=== PATIENT | male | born 1960 | race Caucasian/White ===

== ENCOUNTER 2020-05-23 08:18 | Observation (INO) ==
[2020-05-10 12:49] LABS: Eosinophils # (auto) 0.22 K/uL (0-0.5); Eosinophils % (auto) 3.5 %; Hematocrit (blood only) 49.3 % (42-52); Hemoglobin 16.9 g/dL (14.0-18.0); Immature Granulocytes # (auto) 0.01 K/uL (0.00-0.02); Immature Granulocytes % (auto) 0.2 %; Lymphocytes # (auto) 1.35 K/uL (1.2-3.4); Lymphocytes % (auto) 21.4 %; Mean Corpuscular Hemoglobin 31.2 pg (25-34); Mean Corpuscular Hgb Conc 34.3 g/dL (32-36); Mean Platelet Volume 10.4 fL (7.4-10.4); Monocytes # (auto) 0.82 K/uL (0.11-0.59); Neutrophils # (auto) 3.91 K/uL (1.4-6.5); Neutrophils % (auto) 61.9 %; Platelet Count 222 K/uL (130-400); RDW Coefficient of Variation 13.2 % (11.5-14.5); RDW Standard Deviation 43.5 fL (36.4-46.3); Red Blood Count 5.42 M/uL (4.7-6.1); White Blood Count 6.31 K/uL (4.8-10.8)
[2020-05-10 12:56] LABS: Partial Thromboplastin Ratio 1.2; Partial Thromboplastin Time 32.3 Seconds (21.0-31.0); Prothrombin Time 10.2 Seconds (9.0-12.0)
[2020-05-10 14:31] LABS: Alanine Aminotransferase 35 U/L (12-78); Albumin Level 3.3 gm/dl (3.4-5.0); Aspartate Aminotransferase 16 U/L (15-37); BUN Creatinine Ratio 29.9 (10-20); Blood Urea Nitrogen 22 mg/dl (7-18); Calcium 8.5 mg/dl (8.5-10.1); Carbon Dioxide 26 mmol/L (21-32); Chloride 109 mmol/L (98-107); Est GFR (African American) 116.7; Est GFR (Non-African American) 100.7; Glucose 94 mg/dl (70-99); Potassium 4.2 mmol/L (3.5-5.1); Sodium 141 mmol/L (136-145)
[2020-05-10 14:34] LABS: Albumin Globulin Ratio 0.9 (0.9-2); Alkaline Phosphatase 98 U/L (45-117); Bilirubin,Total 0.6 mg/dl (0.2-1); C Reactive Protein < 0.29 mg/dl (0-0.29); Globulin 3.7 gm/dl (2.5-4.0)
--- NOTE | 2020-05-17 09:29 | Anesthesiology Consultation ---
Date of Service May 17, 2020 Assessment & Plan (1) Encounter for pre-operative examination: Per assessment on 04/17: Travel screen negative. No known COVID-19 positive contacts or current COVID-19 related symptoms. Surgeon arranging preop COVID testing. Awaiting results. Chart Review Chart Review: Acceptable Risk for Surgery and Patient NOT seen in Pre Admission Testing History Surgery Operation Date: 05/23/20 08:50 Proposed Procedures p Left Total Knee Arthroplasty - Marcelo Cote MD Height/Weight Height: 5 ft 9 in Weight: 127.459 kg Allergies Allergy/AdvReac Type Severity Reaction Status Date / Time No Known Allergies Allergy Unknown Verified 04/17/20 14:15 Medications Home Medications Medication Instructions Recorded Confirmed Last Taken amoxicillin 500 mg tablet 2,000 mg PO ONCE #4 tab 08/12/19 04/17/20 Unknown famotidine 20 mg tablet 20 mg PO UD PRN 09/23/19 04/17/20 Unknown ibuprofen [Advil] 600 mg PO UD PRN 11/22/19 04/17/20 Unknown acetaminophen [Tylenol] 975 mg PO QID PRN 03/24/20 04/17/20 04/05/20 08:00 Past Medical History Medical History Acid reflux Ehsmheh-Crvmq-Tfhsp disease follows Dr. Shaffer ([facility]) annually Degenerative disc disease DJD (degenerative joint disease) Morbid obesity Osteoarthritis Snores Past Family History Family History Mother Diabetes Past Surgical History Surgical History Family history of reaction to anesthesia DAUGHTER, SLOW TO WAKE UP History of colonoscopy History of tooth extraction History of total right hip replacement Social History Smoking Status: Former smoker tobacco type: cigarettes Smoking cigarettes per day: 4 CIGS PER DAY Do You Dip or Chew Tobacco: No Smoking End Date: 1 YR AGO Hx Alcohol Use: Yes Alcohol type: hard liquor alcohol intake frequency: a few times a week Hx Substance Use: No substance use type: does not use Testing Laboratory Results 05/10/20 WBC 6.31 H/H 16.9/49.3 PLATELETS 222 SODIUM 141 POTASSIUM 4.2 CHLORIDE 109 CO2 26 BUN 22 CREATININE 0.72 GLUCOSE 94 PT 10.2 PTT 32.3 INR 1.0 T&S O+Ab- Electrocardiogram Date: 01/11/20 Findings: + NSR @ (84) and + no change from (2007) LAD. Low voltage QRS. Chest X-Ray Date: 01/11/20 Findings: + NAD There is mild elevation/eventration left hemidiaphragm
--- NOTE | 2020-05-20 11:26 | History and Physical Report ---
DATE OF ADMISSION: 05/23/2020 CHIEF COMPLAINT: Bilateral knee pain and discomfort, left side a bit worse than the right. HISTORY OF PRESENT ILLNESS: The patient is a 59-year-old gentleman who has been a fairly long-term patient of the practice, who presents again for treatment of his knees. He has got a long history of bilateral knee pain and discomfort that has gradually gotten worse over time. We had actually scheduled him for left knee replacement, but this was canceled due to the COVID epidemic. Since then, he developed some back pain and had to undergo some treatment for that. That has now cleared up and doing better. He continues to be bothered by bilateral knee pain and discomfort. The left side is worse than the right. He has been through extensive conservative treatment provided by my partner, Dr. Howe over the years. He has had multiple aspirations and injections, which have become less successful over time. He has got chronic pain. Increased pain going up and down steps. He would like to proceed with left knee replacement. He is open to do the right one in about 3 months. PAST MEDICAL HISTORY: 1. Gastroesophageal reflux disease. 2. Obesity with BMI of 42. 3. Back pain, sciatica. PAST SURGICAL HISTORY: Include right total hip replacement done by myself in 2007. ALLERGIES: None. CURRENT MEDICATIONS: Include: 1. Advil. 2. Pepcid. SOCIAL HISTORY: This is a 59-year-old male. He is fairly active. Quit smoking a year ago. Occasional alcohol intake. FAMILY HISTORY: Noncontributory. REVIEW OF HISTORY: Negative for diabetes, neurologic problem, vascular problems or bleeding disorders. No history of DVT or PE. No known bleeding problems. PHYSICAL EXAMINATION GENERAL: Shows a pleasant, middle-aged male, looks to be in good health. HEENT: Benign. NECK: Supple, no lymphadenopathy. LUNGS: Clear to auscultation. HEART: Has regular rate and rhythm. ABDOMEN: Soft, nontender, nondistended. EXTREMITIES: Grossly neurovascularly intact except as follows. Examination of both knees reveals the patient ambulates with use of a cane. Examination of the left knee reveals fairly neutral slight varus alignment. He has got a small knee effusion. Range of motion is 5-10 degrees short of full extension to 120 degrees of flexion. He has patellofemoral crepitance. No pain with hip motion. Examination of the right knee reveals fairly neutral alignment. Small knee effusion. Range of motion 5-125. No instability. He does have crepitance with knee motion. X-RAYS: X-rays of both knee reveals some moderate tibial, femoral and advanced patellofemoral arthritis. The left side is a bit worse than the right. ASSESSMENT: A 59-year-old gentleman with history of right hip replacement in the past along with gastroesophageal reflux disease, obesity, and chronic back pain with advanced bilateral patellofemoral arthritis. He has got less severe tibiofemoral arthritis. He has failed conservative treatment. He continues to have recurrent effusions that has become less responsive to conservative treatment. He would like to proceed with knee replacement. He is hoping to do his left knee and then the right knee about 3 months later. PLAN: We will proceed with left knee replacement. The risks and benefits of this procedure were explained to the patient including but not limited to DVT, PE, , infection, neurological injury, vascular injury, bleeding problem, pain, limited range of motion, stiffness, failure to relieve symptoms, incomplete relief of symptoms, need for blood transfusion, need for revision surgery. I made him fully aware that knee replacement for patellofemoral arthritis is less predictable than tibiofemoral arthritis and he is aware of it. Does not feel like he has got any other options. We are going to proceed with a knee replacement. As far as discharge plans, he is planning to be discharged to home using [facility] home health program.
[~2020-05-23 08:18] MED LIST: ACETAMINOPHEN 500 MG TAB PO SCH; BUPIVACAINE 0.5 % 5 MG/1 ML PF 10ML VIAL ONE; BUPIVACAINE LIPOSOME/PF 266 MG, BUPIVACAINE/EPINEPHRINE 50 ML, SODIUM CHLORIDE 0.9% 30 ... INFIL SCH; BUPIVACAINE/EPINEPHRINE 0.25% 1:200,000 30 ML VIAL ONE; DEXAMETHASONE SOD INJ 4 MG/ML VIAL ONE; FAMOTIDINE 20 MG TAB PO SCH; GABAPENTIN 600 MG DOSE PO SCH; LR 500ML BOLUS, THEN 15ML/HR IV SCH; LR 60ML/HR IV SCH; METOCLOPRAMIDE HCL 10 MG TABLET PO SCH; TRANEXAMIC ACID / 0.7% NACL 1,000 MG/100 ML BAG IV SCH; ceFAZolin 2000MG 2,000 MG/15 ML SYR IV SCH
--- NOTE | 2020-05-23 08:41 | History & Physical Bridge Note ---
Date of Service May 23, 2020 History & Physical Bridge Note I have examined the patient, reviewed the History & Physical and in the interval since the performance of the History & Physical I have noted the following changes of clinical significance: no changes noted
[2020-05-23] MEDS ORDERED: MIDAZOLAM HCL 1 MG/ML 2ML VIAL ONE ×2 (09:17→09:18)
[2020-05-23] MEDS ORDERED: fentaNYL citrate 100 MCG/2 ML VIAL ONE (09:18)
[2020-05-23] MEDS ORDERED: TRANEXAMIC ACID / 0.7% NACL 1000MG/100ML BAG IV ONE (09:26)
[2020-05-23] MEDS ORDERED: BUPIVACAINE/EPINEPHRINE 0.25% 1:200,000 30 ML VIAL ONE (10:11)
[2020-05-23] MEDS ORDERED: BUPIVACAINE LIPOSOME 1.3% 266 MG/20 ML VIAL ONE (10:12)
[2020-05-23] MEDS ORDERED: SODIUM CHLORIDE 0.9% PF 50 ML VIAL ONE (10:12)
[2020-05-23] MEDS ORDERED: BACITRACIN INJ 50,000 UNIT VIAL ONE (10:12)
[2020-05-23] MEDS ORDERED: LIDOCAINE HCL 2% 2 ML VIAL/AMP(20MG/ML) INFIL ONE (10:15)
[2020-05-23] MEDS ORDERED: PROPOFOL IV EMULSION 10 MG/ML 20 ML VIAL IV ONE (10:16)
[2020-05-23] MEDS ORDERED: ONDANSETRON INJ 2 MG/ML 2 ML VIAL ONE (10:49)
[2020-05-23] MEDS ORDERED: PHENYLEPHRINE 100MCG/ML 5ML SYR ONE (11:39)
[2020-05-23] MEDS ORDERED: ePHEDrine sulfate 50 MG/ML AMP IV PRN (12:02)
[2020-05-23] MEDS ORDERED: ATROPINE SULFATE 0.1 MG/ML 10ML SYR IV PRN (12:02)
[2020-05-23] MEDS ORDERED: fentaNYL citrate 100 MCG/2 ML VIAL IV PRN (12:02)
[2020-05-23] MEDS ORDERED: ONDANSETRON INJ 2 MG/ML 2 ML VIAL IV PRN ×2 (12:02→14:22)
--- NOTE | 2020-05-23 12:21 | Post Operative Brief Note ---
PG Immediate Post Op with CF Date of Surgery May 23, 2020 Pre & Post Diagnosis Operation Date: 05/23/20 10:50 Pre-Op Diagnosis: Left Knee Advanced Degenerative Joint Disease Post-Op Diagnosis: Left Knee Advanced Degenerative Joint Disease I identified the patient and participated in the time-out.: Yes Procedure Operation Date: 05/23/20 10:50 Actual Procedures p Left Total Knee Arthroplasty(Left) - Marcelo Cote MD Surgeon Marcelo Cote MD Branch Store Manager Massimo, PAC Estimated Blood Loss 50 Findings Consistent with Post-Op Diagnosis Fluids 1200 cc Specimens Specimen Description: A. Left Knee Bone and Tissue Drains Singh Catheter Anesthesia Type Spinal MAC Complications none Disposition Accompanied Patient To Recovery: No Disposition: Recovery Room
--- NOTE | 2020-05-23 12:51 | XRay Report ---
LEFT KNEE 2 VIEWS History: Left total knee arthroplasty. Degenerative arthritis. Postop. FINDINGS: The patient is status post a left total knee arthroplasty. The hardware is intact. No fract ure or dislocation. Skin beatriz are in place. IMPRESSION: Left total knee arthroplasty. No evidence for hardware complication. ACT 112: Negative or not required by law. Electronically signed by: Stanislav Rocha M.D. 05/23/2020 12:50 PM
--- NOTE | 2020-05-23 13:22 | Anesthesiology Progress Note ---
Date of Service May 23, 2020 Anesthesia Post Procedure Vital Signs Vital Signs: Temp Pulse Pulse Resp BP Pulse Ox 05/23/20 13:05 85 12 121/61 94 05/23/20 12:55 36.4 C L 84 16 131/62 92 05/23/20 12:45 88 15 138/70 93 05/23/20 12:35 89 15 138/65 92 05/23/20 12:27 36.2 C L 93 H 15 103/53 L 96 05/23/20 09:33 76 20 125/66 96 05/23/20 08:43 36.6 C 82 20 147/90 H 95 Transfer of Care Handoff Completed per policy Notes Mental Status: alert / awake / arousable Patient Amnestic to Procedure: Yes Nausea / Vomiting: adequately controlled Pain: adequately controlled Airway Patency, RR, SpO2: stable & adequate BP & HR: stable & adequate Hydration State: stable & adequate Anesthetic Complications: no major complications apparent
[2020-05-23] MEDS ORDERED: bisacodyL 10 MG SUPP PR PRN (14:22)
[2020-05-23] MEDS ORDERED: MAGNESIUM HYDROXIDE SUSP 30 ML UDC PO PRN (14:22)
[2020-05-23] MEDS ORDERED: METOCLOPRAMIDE HCL INJ 5 MG/ML 2 ML VIAL IV PRN (14:22)
[2020-05-23] MEDS ORDERED: NALOXONE HCL 0.4 MG/1 ML VIAL/CARP IV PRN (14:22)
[2020-05-23] MEDS ORDERED: diphenhydrAMINE Capsule 25 MG CAP PO PRN (14:22)
[2020-05-23] MEDS ORDERED: FAMOTIDINE 20 MG TAB PO PRN (14:22)
[2020-05-23] MEDS ORDERED: HYDROmorphone INJ 0.5 MG/0.5 ML SYR IV PRN (14:22)
[2020-05-23] MEDS ORDERED: ALUMINUM/MAGNESIUM SUSP 30 ML UDC PO PRN (14:22)
[2020-05-23] MEDS ORDERED: TAMSULOSIN HCL 0.4 MG CAP PO PRN (14:22)
[2020-05-23] MEDS: KETOROLAC 30 MG/ML VIAL IV SCH ×2 (15:42→21:32)
[2020-05-23] MEDS: ACETAMINOPHEN 500 MG TAB PO SCH (15:43)
[2020-05-23] MEDS: Scopolamine CHECK PATCH PLACEMENT SCH (15:44)
[2020-05-23] MEDS: SODIUM CHLORIDE 0.9% 1000ML 1,000 ML IV SCH ×2 (15:44→21:32)
--- NOTE | 2020-05-23 16:46 | Operative Report ---
Post Operative Report Pre & Post Diagnosis Operation Date: 05/23/20 10:50 Pre-Op Diagnosis: Left Knee Advanced Degenerative Joint Disease Post-Op Diagnosis: Left Knee Advanced Degenerative Joint Disease I identified the patient and participated in the time-out.: Yes Procedure Operation Date: 05/23/20 10:50 Actual Procedures p Left Total Knee Arthroplasty(Left) - Marcelo Cote MD Surgeon Marcelo Cote MD Diet Aide Massimo, PAC Estimated Blood Loss 50 Findings Consistent with Post-Op Diagnosis Operative findings revealed advanced left knee DJD most extensive in the patellofemoral compartment with extensive grade 4 [id number] disease of the trochlea and patella. He had eburnation on both services and quite a bit of wear of the patella surface itself. He had some spotty grade 4 changes laterally. Fairly mild disease medially. Fairly large knee joint effusion. Fluids 1200 cc. Specimens Left knee sent for pathology. Drains None. Anesthesia Type Spinal MAC Complications none Disposition Accompanied Patient To Recovery: No Disposition: Recovery Room Indications Patient is a 59-year-old gentleman is had several year history of bilateral knee pain discomfort and recurrent just knee swelling and effusions. He was treated by my partner for quite some time. This became less successful over time. He had mostly patellofemoral arthritis but some tibiofemoral arthritis. Patient elected proceed with total knee arthroplasties. The recurrent knee effusions were quite bothersome. Description of Procedure Operative implants consist of: 1. Biomet Vanguard size 67.5 left posterior by femoral component. 2. Biomet size 75 tibial tray. 3. 10 mm posterior box polyethylene insert. 4. 28 x 8 all poly-patella. The patient was taken to the operating room identified and placed on the operating room table in a supine position protectors were properly padded. IV antibiotics arrived by anesthesia team. A spinal anesthetic and abductor canal block had provided in the holding area. Singh catheter was placed in sterile fashion. A left thigh turn was then placed in the left lower extremity was then prepped and draped in usual sterile fashion. The left leg was elevated exsanguinated with use of an Esmarch interspace at 3 mmHg. An anterior approach left knee was then performed to longitudinal incision centered over the patella. Sharp dissection was got through subcutaneous tissue down to the extensor mechanism. A medial parapatellar arthrotomy incision was made. Some subperiosteal dissection was carried out medially. The fat pad was dissected from each patella tendon. Lateral patellofemoral ligament was released. Patella was subluxated laterally and the knee was flexed. The osteophytes were taken off distal femur. The ACL and PCL were then released from distal femur the tibia subluxate anteriorly. The external tibial alignment jig was then placed in the interface the tibia and adjusted 14 mm medially. Proximal tibial cut was made to move about 3 to 4 mm of bone from the medial side. He did not have much bony wear on the tibia. The tibia sized to a size 75. Attention drawn the femur. The distal femur then with a sharp drop with intramedullary canal was suction. A left 5 degree valgus cutting guide was placed but distal to the distal femoral cutting block was pinned in place. Distal femoral cut was made to take an additional 3 mm of bone off distal femur. The femur was then sized to a size 67.5. The AP cutting block was pinned parallel to the epicondylar axis which was 6 degrees of external rotation. The anterior cut, anterior chamfer, posterior cut, posterior chamfer cuts were made. Box cutting guide was placed in just slight lateral box cut was made. The knee was flexed. The remnants of the medial lateral menisci were excised. The osteophytes were taken off the posterior aspect of the femur. A trial femoral component was placed. The tibial tray was pinned in maximum external rotation and the drill and stem punch were used to create defect in proximal to for the tibial tray. The knee was then trialed and 10 mm insert fit most appropriate. Attention then drawn the patella. The patella was cleaned of all soft tissues. Some large osteophytes were removed from around the patella. The patella was quite worn with a thickness of 18. Was cut down to 12. Even this there was some the lateral facet which was still low below the level of the cut. I did downsize the patella in order to try to maximize patella tracking. We downsized this to a 28. The lug holes were drilled for the 28 patella. The lateral osteophyte is moved. Patella button was placed. Knee was taken through range of motion patella tracked nicely with no thumbs test. Attention drawn to placing permanent components. All trial components were removed. A bone plug was placed in the distal femur limit blood loss. A double batch Palacos G cement was mixed. A Biomet Vanguard size 67.5 left posterior stabilized femoral component, size 75 tibial tray, 10 mm Po stabilized polyethylene insert, and a 28 x 8 all poly-patella then cemented in place. The knee was brought out into full extension total cement hardened. Final cement check was then performed. The pericapsular tissues were injected with total of 100 cc of combination of 20 of Exparel, 30 cc normal saline, 50 cc of quarter percent Marcaine with epinephrine. Patient did receive 1 g tranexamic acid per the tech was then let down for final tourniquet time of 63 minutes. Hemostasis assured use electrocautery. The extensor mechanism then closed with a combination #1 PDS suture #1 Vicryl suture in [id number] fashion. Extensor mechanism checked found to be intact the subcutaneous tissue then closed with 2 Dexon suture in a buried interrupted fashion skin was closed skin beatriz. Leg was then cleaned dried a sterile dressing composed Xeroform, 4 x 4's, sterile cast padding, Sanya bandage were applied. Patient then transferred to the recovery room in stable condition. Patient tolerated proc edure well and there were no complications. Maude Keys, my physician field technical assistant, was present for the entire procedure. His assistance was required for appropriate patient positioning, prepping and draping, surgical exposure, performing the technical details of the operation, placement the implants, closure of the wound, and placement of a sterile bandage. I attest to the content of the Intraoperative Record and any orders documented therein. Any exceptions are noted below.
[2020-05-23] MEDS: oxyCODONE HCL IR 5 MG TAB (IMMEDIATE RELEASE) PO PRN ×2 (17:06→22:15)
[2020-05-23] MEDS: ASCORBIC ACID 500 MG TAB PO SCH (17:08)
[2020-05-23] MEDS ORDERED: TRANEXAMIC ACID / 0.7% NACL 1,000 MG/100 ML BAG IV SCH (18:30)
[2020-05-23] MEDS: ceFAZolin 2000MG 2,000 MG/15 ML SYR IV SCH (18:57)
[2020-05-23] MEDS: ASPIRIN 81 MG ECTAB PO SCH (20:31)
[2020-05-23] MEDS: DOCUSATE SODIUM 100 MG CAP PO SCH (20:31)
[2020-05-23] MEDS: TAPENTADOL HCL ER 50 MG TABCR PO SCH (20:33)
[2020-05-23] MEDS ORDERED: SENNA 8.6 MG TAB PO SCH (21:00)
[2020-05-24] MEDS: ACETAMINOPHEN 500 MG TAB PO SCH ×2 (00:43→08:45)
[2020-05-24] MEDS: Scopolamine CHECK PATCH PLACEMENT SCH ×2 (00:44→08:46)
[2020-05-24] MEDS: ceFAZolin 2000MG 2,000 MG/15 ML SYR IV SCH (02:50)
[2020-05-24] MEDS: KETOROLAC 30 MG/ML VIAL IV SCH ×2 (04:17→10:10)
[2020-05-24] MEDS: SODIUM CHLORIDE 0.9% 1000ML 1,000 ML IV SCH (04:54)
[2020-05-24] MEDS: oxyCODONE HCL IR 5 MG TAB (IMMEDIATE RELEASE) PO PRN ×2 (05:58→12:02)
[2020-05-24 06:09] LABS: Mean Corpuscular Hemoglobin 30.7 pg (25-34); Mean Corpuscular Hgb Conc 33.3 g/dL (32-36); Mean Platelet Volume 9.9 fL (7.4-10.4); Platelet Count 214 K/uL (130-400); RDW Coefficient of Variation 13.1 % (11.5-14.5); RDW Standard Deviation 43.9 fL (36.4-46.3); Red Blood Count 4.24 M/uL (4.7-6.1); White Blood Count 10.46 K/uL (4.8-10.8)
[2020-05-24 06:44] LABS: BUN Creatinine Ratio 29.4 (10-20); Calcium 7.6 mg/dl (8.5-10.1); Creatinine Clr Calc Pharmacy 139.3 ml/min; Est GFR (Non-African American) 100.1; Potassium 4.2 mmol/L (3.5-5.1)
[2020-05-24] MEDS: DOCUSATE SODIUM 100 MG CAP PO SCH (08:45)
[2020-05-24] MEDS: ASPIRIN 81 MG ECTAB PO SCH (08:45)
[2020-05-24] MEDS: ASCORBIC ACID 500 MG TAB PO SCH (08:46)
[2020-05-24] MEDS: TAPENTADOL HCL ER 50 MG TABCR PO SCH (08:48)
[2020-05-24] MEDS ORDERED: MULTIVITAMIN TAB PO SCH (09:00)
--- NOTE | 2020-05-24 09:17 | Progress Notes ---
DATE: 05/24/2020 SUBJECTIVE: A 59-year-old gentleman postop day 1 from a left knee replacement. He is doing pretty well. Pain has been controlled. Had a reasonable night. No chest pain or shortness of breath. Not feeling dizzy or lightheaded. OBJECTIVE: VITAL SIGNS: Temperature 36.4. Vital signs stable. GENERAL: Physical examination shows a pleasant, middle-aged male. He is standing up, walking around his room this morning when I visited with him. He looks comfortable. LUNGS: Clear to auscultation. HEART: Has a regular rate and rhythm. ABDOMEN: Soft, nontender, nondistended. EXTREMITIES: Grossly neurovascularly intact except as follows. Examination of the left lower extremity reveals the dressing to be clean, dry and intact. Leg alignment looks good. He can dorsiflex and plantarflex his foot appropriately. He is neurologically intact. LABORATORY DATA: Hemoglobin is 13.0. Hematocrit 39.0. Electrolytes are stable. ASSESSMENT: A 59-year-old gentleman postop day 1 from a left knee replacement, doing pretty well. Pain is controlled. He is neurologically intact. PLAN: 1. DVT prophylaxis include thigh-high TEDs, SCDs and aspirin twice a day. 2. PT/OT, weight bear as tolerated. Left total knee protocol. 3. Pain control, doing pretty well with current pain regimen. 4. Disposition: He is planning to be discharged to home with some home health once adequately recovered and medically stable.
--- NOTE | 2020-05-30 06:36 | Discharge Summary ---
Date of Service May 30, 2020 Admission HPI Per Admitting Provider Documented in the H & P Admission Exam (Per Admitting) Constitutional Documented in the H & P Discharge Data Consultations 05/23/20 14:22 Consult Case Management - Discharge Planning Routine Procedures Performed Operation Date: 05/23/20 10:50 Actual Procedures p Left Total Knee Arthroplasty(Left) - Marcelo Cote MD Hospital Course (1) Status post total left knee replacement: This patient is a 59 year old male admitted on 05/23/20 and underwent total knee arthroplasty. He tolerated the procedure well and there were no complications. Transferred to the PACU post op and later to the orthopedic floor for further care. He was given ancef for antibiotic prophylaxis. He was also given ALEXIS stockings, SCDs, and aspirin for DVT prophylaxis. Hemoglobin, hematocrit, and vital signs were monitored during his hospital stay and remained stable. Did not require any blood transfusions. There were no complications during his hospital stay. By post op day #1 the patient was tolerating a regular diet, pain was reasonably controlled with oral pain medicine, and he was participating in physical therapy. On post op day #1 the patient was discharged home and set up with home health care. He was given printed discharge instructions including prescriptions for extra strength tylenol, aspirin, and oxycodone. Continue physical therapy, weight bearing as tolerated. Continue ALEXIS stockings. Follow up approximately 2 weeks post op or sooner if there are problems or concerns. Coding Level of Care Code None Diagnoses Status post total left knee replacement Z96.652
== END 2020-05-24 13:42 | disposition home health service (06) ==
LOC: 3E 08:18 → ASU 08:18

== ENCOUNTER 2021-11-27 05:08 | Observation (INO) ==
--- NOTE | 2021-10-18 09:57 | PAT Medication Instructions ---
Medication Instructions Date of Service October 18, 2021 Home Medications Medication Instructions Recorded amoxicillin 500 mg tablet 2,000 mg PO ONCE #4 tab 12/04/20 famotidine 20 mg tablet (Pepcid) 20 mg PO UD PRN ibuprofen 200 mg tablet (Advil) 600 mg PO UD PRN acetaminophen 325 mg tablet (Tylenol) 975 mg PO QID PRN amoxicillin 500 mg tablet 2,000 mg PO ONCE Continue as directed amoxicillin 500 mg tablet 2,000 mg PO ONCE ASK your surgeon for instructions ibuprofen 200 mg tablet (Advil) 600 mg PO UD PRN Take morning of surgery With a small sip of water, OTHERWISE NOTHING TO EAT OR DRINK AFTER MIDNIGHT: famotidine 20 mg tablet (Pepcid) 20 mg PO UD PRN(if needed) acetaminophen 325 mg tablet (Tylenol) 975 mg PO QID PRN(okay to take up to 4 hours prior to surgery if needed) Take evening before surgery acetaminophen 325 mg tablet (Tylenol) 975 mg PO QID PRN(if needed) Other Notes If you have any questions please call us at [phone] or [phone] or [phone] or [phone]
--- NOTE | 2021-10-19 13:20 | Anesthesiology Consultation ---
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 Case discussed with Dr. Magallanes who advised patient is NOT an acceptable ca ndidate for [facility] from anesthesia perspective given co- morbidities. Surgeon's office made aware. - COVID screening: Per assessment on 10/19/2021: Travel screen negative, no known COVID-19 positive contacts or current COVID-19 related symptoms in past 2 weeks. Patient vaccinated. Surgeon arranging preop COVID testing, scheduled 11/23/2021. Awaiting results. Chart Review Chart Review: Acceptable Risk for Surgery and Patient seen in Pre Admission Testing Teaching & Discussion Pre-Anesthesia Teaching/Discussion Notes: Instructed NPO after midnight before surgery, except medications with 15 cc of water. Medication instructions provided according to the PAT guidelines. History Surgery Operation Date: 11/27/21 11:05 Proposed Procedures p OP: Left Total Hip Replacement - Marcelo Cote MD Height/Weight Height: 5 ft 8 in Weight: 119.9 kg Allergies Allergy/AdvReac Type Severity Reaction Status Date / Time No Known Allergies Allergy Unknown Verified 10/18/21 08:01 Medications Home Medications Medication Instructions Recorded Confirmed Last Taken famotidine 20 mg tablet (Pepcid) 20 mg PO UD PRN 09/23/19 10/18/21 02/19/21 06:00 ibuprofen 200 mg tablet (Advil) 600 mg PO UD PRN 11/22/19 10/18/21 02/15/21 acetaminophen 325 mg tablet 975 mg PO QID PRN 03/24/20 10/18/21 02/19/21 06:00 (Tylenol) amoxicillin 500 mg tablet 2,000 mg PO ONCE #4 tab 12/04/20 10/18/21 Unknown Past Medical History Medical History (Updated 10/19/21 @ 13:52 by Myra Lima PA-C) Acid reflux controlled, stable per pt Xlskkax-Orinw-Answl disease follows Dr. Shaffer ([facility]) annually-longstanding bilateral mild foot drops worse on the left and numbness, ambulates with cane (TKA and back surgery in past year) Degenerative disc disease DJD (degenerative joint disease) History of anesthesia reaction LOW BP POST OP WITH BACK SURGERY 05/2021 History of claustrophobia with MRIs Lumbar spinal stenosis Morbid obesity with BMI of 40.0-44.9, adult Osteoarthritis Sciatica Snores NO SLEEP STUDY Patient denies h/o stroke, seizures, heart attack, heart failure, DM, HTN, blood clots or blood transfusions. Exercise / Class Metabolic Activity II 4-5 Yardwork/Stairs/Walk up hill (denies CP or SOB with 1 FOS) Past Family History Family History Mother Diabetes Daughter Family history of reaction to anesthesia slow to wake Past Surgical History Surgical History (Updated 10/19/21 @ 13:53 by Myra Lima PA-C) History of colonoscopy History of lumbar surgery 05/2021 [facility] [place]: hypotension, successfully treated with additional IV fluids per pt History of tooth extraction History of total left knee replacement 05/23/2020: SAB at L3-L4 1 attempt + PNB. No issues postop per anesthesia note. History of total right hip replacement Status post epidural steroid injection multiple--last 11/16/20 Past Anesthesia History No Hx of Anesthesia Complications and Other (daughter-slow to wake, denies needing re-intubated) History of PONV No Hx of PONV and No Hx of Motion Sickness Social History Smoking Status: Former smoker tobacco type: cigarettes Smoking cigarettes per day: 4 CIGS PER DAY Do You Dip or Chew Tobacco: No Smoking End Date: QUIT 2 YRS AGO Hx Alcohol Use: Yes Alcohol type: hard liquor alcohol intake frequency: a few times a week Hx Substance Use: No substance use type: does not use Review of Systems Patient denies chest pain, shortness of breath, dyspnea on exertion, witnessed apneas, fever, chills, cough, wheezing, or palpitations. Physical Exam Vital Signs Vitals BP 117/80 P 69 TEMP 97.8 SP02 96% on RA RESP 17 Physical Full cervical extension range of motion without pain Full TMJ range of motion TMD 3 finger breaths Mallampati Score 2 Dentition: upper partial 5 teeth, one crown left upper side and one crown back upper pt unsure of side; denies chipped or loose teeth Lungs: normal respiratory effort. Clear throughout to auscultation, no adventitious breath sounds Cardiac: regular rate and rhythm, no murmurs noted Carotid arteries: negative bruit bilat Extremities: trace pitting edema (nontender, nonerythematous) chronic per pt change or worsening Lab Results Anesthesia Preop Results Results Anesthesia Widget: WBC 6.34 K/uL (4.8-10.8) 10/19/21 Hgb 16.9 g/dL (14.0-18.0) 10/19/21 Hct 50.1 % (42-52) 10/19/21 Plt 220 K/uL (130-400) 10/19/21 Na 138 mmol/L (136-145) 10/19/21 K 4.8 mmol/L (3.5-5.1) 10/19/21 Cl 103 mmol/L (98-107) 10/19/21 CO2 29 mmol/L (21-32) 10/19/21 BUN 22 mg/dl (6-23) 10/19/21 Creat 0.64 mg/dl (0.6-1.4) 10/19/21 Glucose Level 96 mg/dl (70-99(Fasting)) 10/19/21 PT 10.0 Seconds (9.0-12.0) 10/19/21 PTT 31.9 Seconds (21.0-31.0) H 10/19/21 INR 1.0 (0.9-1.1) 10/19/21 Blood Type O Positive 10/19/21 Antibody Screen NEGATIVE 10/19/21 Testing Electrocardiogram Date: 10/19/21 NSR, rate 70 bpm Left axis deviation Incomplete RBBB Chest X-Ray Date: 10/19/21 No acute chest disease
--- NOTE | 2021-11-24 11:26 | History and Physical Report ---
DATE OF ADMISSION: 11/27/2021. CHIEF COMPLAINT: Left hip pain, discomfort and stiffness. HISTORY OF PRESENT ILLNESS: The patient is a 61-year-old gentleman well known to me from previous ri ght hip replacement done in 2007 and the left knee replacement done about a year and a half ago. He has done well from these surgeries. He has also developed a lot of hip and leg problems on his left side. He did have back surgery at [place] about a year ago and recovered from this. He continues to be bothered by hip, groin, and thigh pain on that side. He has lost about 40 pounds, but continues to be limited by the pain. It is disabling pain. He has a limited walking tolerance. X-rays have shown hip arthritis, and he is here to have his hip fixed. PAST MEDICAL HISTORY: Significant for: 1. A 40-pound weight loss. 2. Sgrvzbj-Yikjj-Pgjot disease. 3. Back pain and back arthritis. 4. Gastroesophageal reflux disease. 5. Mild obesity with BMI of 40. PAST SURGICAL HISTORY: Includes: 1. Right hip replacement done 10/31/2007. 2. Left knee replacement done on 05/20/2020. 3. Back surgery done by Dr. Garcia in [place] on 05/30/2021. ALLERGIES: None. CURRENT MEDICATIONS: 1. Pepcid. 2. Advil. SOCIAL HISTORY: A 61-year-old male. He is . Does not smoke. No significant alcohol intake. FAMILY HISTORY: Noncontributory. REVIEW OF SYSTEMS: Negative for diabetes. Denies any chest pain or shortness of breath. No history of DVT or PE. No known bleeding problems. He does have underlying Jznfkhz-Mikvk-Kfgci disease. PHYSICAL EXAMINATION: GENERAL: Shows a pleasant middle-aged male. Looks to be in reasonably good health. HEENT: Benign. NECK: Supple. No lymphadenopathy. LUNGS: Clear to auscultation. HEART: Regular rate and rhythm. ABDOMEN: Soft, nontender, nondistended. EXTREMITIES: Grossly neurovascularly intact except as follows. Examination of the left hip revealed patient walks with use of a cane. He limps on the left side. H e is about 0.5 cm short on the left side compared to right. He has pain with any type of hip motion. Negative straight leg raise. He is neurologically intact. Examination of the left knee reveals a well-healed incision. Minimal swelling. Range of motion is 0 -120. X-RAYS: X-rays of the left hip were reviewed. It shows advanced left hip DJD. He had a dysplastic appearance to his hip with a high valgus angle. He has got flattening of the femoral head. He had c omplete loss of joint space. ASSESSMENT: A 61-year-old male with underlying Ghaoqcz-Finxt-Cilzv disease, status post right hip re placement done in 2007 and a left knee replacement a year and a half ago with advanced left hip DJD. He did have a pretty recent back surgery done at [place] and has recovered from this. He has become persistently disabled by his hip pain, would like to have his hip fixed. PLAN: We are going to take him to the operating room and do left total hip replacement. The risks a nd benefits of this procedure were explained to the patient include but not limited to DVT, PE, , infection, neurological injury, vascular injury, bleeding problem, pain, limited range of motion, s tiffness, failure to relieve his symptoms, incomplete relief of symptoms, fracture, leg length inequa lity, nerve palsy, dislocation, etc. The patient understands and desires to proceed. Informed conse nt was obtained. We talked about implants. He has got a vpuzw-fs-anlti hip implant on the other side. We did not do that anymore and we will use a ceramic on polyethylene surface. We will plan on using a Corail stem, but if he has got too much dysplasia, we will be prepared to use the S-ROM if needed. He is alejo enamorado to be discharged to home using [facility] home health program. Will see him back 2 weeks postop. Job ID: [id number]
[2021-11-27] MEDS: ACETAMINOPHEN 500 MG TAB PO SCH ×4 (05:47→20:33)
[2021-11-27] MEDS ORDERED: Scopolamine 1 MG TDSY TD SCH (06:00)
[2021-11-27] MEDS ORDERED: TRANEXAMIC ACID 1,000 MG **IV Pre-op IV SCH (06:00)
[2021-11-27] MEDS ORDERED: LR 500ML BOLUS, THEN 15ML/HR IV SCH (06:00)
[2021-11-27] MEDS ORDERED: FAMOTIDINE 20 MG TAB PO SCH (06:00)
[2021-11-27] MEDS ORDERED: BUPIVACAINE LIPOSOME/PF 266 MG, BUPIVACAINE/EPINEPHRINE 50 ML, SODIUM CHLORIDE 0.9% 30 ... INFIL SCH (06:00)
[2021-11-27] MEDS ORDERED: LR 60ML/HR IV SCH (06:00)
[2021-11-27] MEDS ORDERED: ceFAZolin 2000MG 2,000 MG/15 ML SYR IV SCH (06:00)
[2021-11-27] MEDS ORDERED: METOCLOPRAMIDE HCL 10 MG TABLET PO SCH (06:00)
[2021-11-27] MEDS ORDERED: GABAPENTIN 600 MG DOSE PO SCH (06:00)
[2021-11-27] MEDS ORDERED: BUPIVACAINE 0.5 % 5 MG/1 ML PF 10ML VIAL ONE (06:28)
[2021-11-27] MEDS ORDERED: EPINEPHrine INJ 1 MG/ML AMP ONE (06:36)
[2021-11-27] MEDS ORDERED: BUPIVACAINE 0.5 % 5 MG/1 ML MPF 30ML VIAL ONE (06:37)
[2021-11-27] MEDS ORDERED: MIDAZOLAM HCL 1 MG/ML 2ML VIAL ONE (06:40)
[2021-11-27] MEDS ORDERED: fentaNYL citrate 100 MCG/2 ML VIAL ONE (06:44)
--- NOTE | 2021-11-27 06:53 | History & Physical Bridge Note ---
Date of Service November 27, 2021 History & Physical Bridge Note I have examined the patient, reviewed the History & Physical and in the interval since the performance of the History & Physical I have noted the following changes of clinical significance: no changes noted
[2021-11-27] MEDS ORDERED: PHENYLEPHRINE 100MCG/ML 5ML SYR IV PRN (07:05)
[2021-11-27] MEDS ORDERED: LABETALOL HCL IV 5 MG/ML 20ML IV PRN (07:05)
[2021-11-27] MEDS ORDERED: ATROPINE SULFATE 0.1 MG/ML 10ML SYR IV PRN (07:05)
[2021-11-27] MEDS ORDERED: ePHEDrine sulfate 50 MG/ML AMP IV PRN (07:05)
[2021-11-27] MEDS ORDERED: ONDANSETRON INJ 2 MG/ML 2 ML VIAL IV PRN ×2 (07:05→10:40)
[2021-11-27] MEDS ORDERED: fentaNYL citrate 100 MCG/2 ML VIAL IV PRN (07:05)
[2021-11-27] MEDS ORDERED: HYDROmorphone INJ 1 MG/ML SYRINGE IV PRN (07:05)
[2021-11-27] MEDS ORDERED: KETAMINE 50 MG/5 ML SYRINGE ONE (07:16)
[2021-11-27] MEDS ORDERED: PHENYLEPHRINE 100MCG/ML 5ML SYR ONE (07:33)
[2021-11-27] MEDS ORDERED: PROPOFOL IV EMULSION 10 MG/ML 20 ML VIAL IV ONE ×2 (07:33→09:33)
[2021-11-27] MEDS ORDERED: ONDANSETRON INJ 2 MG/ML 2 ML VIAL ONE (07:33)
[2021-11-27] MEDS ORDERED: LIDOCAINE 2% 2 ML VIAL/AMP(20MG/ML) INFIL ONE (07:33)
[2021-11-27] MEDS ORDERED: ePHEDrine sulfate 50 MG/ML SYR ONE (07:33)
--- NOTE | 2021-11-27 08:56 | Operative Report ---
PG Post Operative Report Pre & Post Diagnosis Operation Date: 11/27/21 07:00 Pre-Op Diagnosis: Left Hip Advanced Degenerative Joint Disease Post-Op Diagnosis: Left Hip Advanced Degenerative Joint Disease I identified the patient and participated in the time-out.: Yes Procedure Operation Date: 11/27/21 07:00 Actual Procedures p Left Total Hip Arthroplasty--Uncemented(Left) - Marcelo Cote MD Surgeon Marcelo Cote MD Supervisor Cigar Processing Haresh Keys PA-C Estimated Blood Loss 200 Findings Consistent with Post-Op Diagnosis Operative findings were advanced left hip DJD. Extensive grade 4 ylau-hu-txcl disease with a dysplastic acetabulum. Large osteophytes. He had a valgus angle to his femoral neck with a dysplastic appearance with increased anteversion. Moderate-sized joint effusion. Fluids 1000 cc Specimens Left femoral head sent for pathology Anesthesia Type Spinal MAC Complications none Disposition Accompanied Patient To Recovery: Yes Indications Patient is a 61-year-old gentleman with a long history of orthopedic problems and multiple joint replacements. He is got underlying Ktfczee-Yxhrs-Jetwu disease. Over the past a year or so he has developed increased pain discomfort in his left hip. He recently had back surgery at [place] which helped some of his back problem but continued to be debilitated by his hip pain. X-rays show advanced hip arthritis. He elected proceed with surgical management. Description of Procedure Operative implants consist of: 1. Biomet G7 size 56 mm acetabular shell. 2. 6.5 cancellous acetabular screws 135 mm length and 1 of 30 mm length. 3. Zaleski hole rcp. 4. Highly cross-linked polyethylene liner with a 56 mm outer diameter, 36 mm inner diameter with a maza placed inferior and posterior. 5. DePuy Corail size 11 standard angle femoral stem. 6. +5/36 mm ceramic articular ball. The patient was taken to the operating, identified, placed on the operating table supine position protectors were properly padded. IV antibiotics tried by anesthesia team. Spinal anesthetic had been implemented holding area. A Singh catheter was placed in sterile fashion. Patient then placed in the right lateral decubitus position. Axillary roll was placed. A Stulberg hip positioner was used for positioning. Left hip and leg were then prepped and draped in usual sterile fashion. Posterior lateral posterior left hip was then performed to a curvilinear incision centered over the greater trochanter. Sharp dissection carried through subcutaneous tissue down below the IT band gluteal fascia the IT band gluteal fascia was incised longitudinally in line with skin incision. The underlying greater bursa was excised. The piriformis and external rotators along with the posterior hip joint capsule were then released from the posterior aspect hip as a single layer. Great care was taken throughout the procedure protect the sciatic nerve at all times. The hip was internally rotated and dislocated. Femoral neck osteotomy cut was made with Final Cut 20 mm above the lesser trochanter. Femoral head was removed and sent for pathology. The femur was re tracted anteriorly. Attention drawn the acetabulum. The acetabulum labrum was excised. There was really not much residual posterior joint capsule remaining. The pulmonary fat was excised. Sequential reaming the acetabular was then performed begin with size 45 and progressing up to 55. I did reamed a little bit with a 56 reamer and then placed a 56 mm cup in about 40 degrees lateral opening and 20 degrees of anteversion. It was fixed with two 6.5 cancellous acetabular screws. A large anterior osteophyte was removed. Trial liner was placed. Attention drawn the femur. The proximal femur was entered with a cookie-cutter followed by canal finder. I then broached begin the size 8 progressing up to 11. Got excellent fit at 11. Then trialed the hip and the +5 articular ball provide full stability in full extension and external rotation and flexion to 90 degrees internal rotation over [address] a maza inferior and posterior to maximize his stability in flexion as he did not have much residual posterior capsule remaining. Leg lengths seemed equal. We elect to place these implants. All trial implants were removed. An apex hole rcp was placed but highly c ross-linked polyethylene liner was placed with a maza placed inferior and posterior. A DePuy size 11 KLA standard 135 degree angle neck was then impacted in position. +5/36 mm ceramic articular ball was placed. Hip was located and found to be stable. Attention drawn toward closing. Wound was irrigated scopes also pulsatile lavage solution. I did inject locally with 60 cc of half percent Marcaine with epinephrine. Posterior capsule and external rotators were then repaired through drill holes as a single layer with #2 Tycron suture. The IT band gluteal fascia then closed in 1 PDS suture running fashion for subcutaneous tissue then closed in 2 layers with a deep layer #1 Vicryl suture and subcutaneous tissue with 2 Dexon suture in a buried interrupted fashion. Skin was closed skin beatriz. Leg was then cleaned and dried and sterile dressing was Xeroform, 4 x 4's, sterile ABD pad, foam tape was applied. The patient then transferred to the recovery room in stable condition. Patient tolerated procedure well and there are no complications. Haresh Keys, my physician lead assistant manager, was present for the entire procedure. His assistance was essential and required for appropriate patient positioning, prepping and draping, surgical exposure, performing the technical details of the operation, placement the implants, closure of the wound, and placement of the sterile bandage. I attest to the content of the Intraoperative Record and any orders documented therein. Any exceptions are noted below.
--- NOTE | 2021-11-27 09:35 | XRay Report ---
SINGLE VIEW PELVIS; SINGLE VIEW LEFT HIP CLINICAL HISTORY: Postoperative examination. FINDINGS: An AP portable view of the hips and pelvis with a crosstable lateral portable view of the l eft hip are obtained. A bipolar left hip arthroplasty is in near-anatomic alignment. There are likely 3 cortical lag screws transfixing the acetabular cup. No acute fracture is identified. There are exp ected postoperative changes overlying the left hip including skin clips, subcutaneous gas, and soft t issue swelling. A right hip arthroplasty is also in place. Lumbosacral spondylosis is partially visua lized IMPRESSION: Expected postoperative findings status post left hip arthroplasty. No acute fracture is s een. ACT 112: Negative or not required by law. Electronically signed by: Mason Burleson M.D. 11/27/2021 9:34 AM
--- NOTE | 2021-11-27 09:41 | Anesthesiology Progress Note ---
Date of Service November 27, 2021 Anesthesia Post Procedure Vital Signs Vital Signs: Temp Pulse Pulse Resp BP Pulse Ox 11/27/21 09:35 75 22 114/66 97 11/27/21 09:25 78 17 106/46 L 98 11/27/21 09:15 73 17 97/59 L 98 11/27/21 09:05 74 17 115/58 L 97 11/27/21 08:55 75 18 108/61 97 11/27/21 08:46 36.3 C L 72 16 99/58 L 96 11/27/21 05:58 36.9 C 84 18 136/70 97 Transfer of Care Handoff Completed per policy Notes Mental Status: alert / awake / arousable Patient Amnestic to Procedure: Yes Nausea / Vomiting: adequately controlled Pain: adequately controlled Airway Patency, RR, SpO2: stable & adequate BP & HR: stable & adequate Hydration State: stable & adequate Neuraxial Anesthesia: was administered and sensory block is resolving Anesthetic Complications: no major complications apparent and Pt Satisfied with anesthetic care
[2021-11-27] MEDS ORDERED: ALUMINUM/MAGNESIUM SUSP 30 ML UDC PO PRN (10:40)
[2021-11-27] MEDS ORDERED: FAMOTIDINE 20 MG TAB PO PRN (10:40)
[2021-11-27] MEDS ORDERED: HYDROmorphone INJ 0.5 MG/0.5 ML SYR IV PRN (10:40)
[2021-11-27] MEDS ORDERED: NALOXONE HCL 0.4 MG/1 ML VIAL/CARP IV PRN (10:40)
[2021-11-27] MEDS ORDERED: METOCLOPRAMIDE HCL INJ 5 MG/ML 2 ML VIAL IV PRN (10:40)
[2021-11-27] MEDS ORDERED: MAGNESIUM HYDROXIDE SUSP 30 ML UDC PO PRN (10:40)
[2021-11-27] MEDS ORDERED: bisacodyL 10 MG SUPP PR PRN (10:40)
[2021-11-27] MEDS ORDERED: diphenhydrAMINE Capsule 25 MG CAP PO PRN (10:40)
[2021-11-27] MEDS: oxyCODONE HCL IR 5 MG TAB (IMMEDIATE RELEASE) PO PRN ×3 (11:14→22:55)
[2021-11-27] MEDS ORDERED: ONDANSETRON 4 MG OD TAB PO PRN (11:18)
[2021-11-27] MEDS: KETOROLAC 30 MG/ML VIAL IV SCH ×3 (11:42→22:55)
[2021-11-27] MEDS: DOCUSATE SODIUM/SENNA 50/8.6MG TAB PO SCH (11:42)
[2021-11-27] MEDS: TAMSULOSIN HCL 0.4 MG CAP PO SCH (11:43)
[2021-11-27] MEDS: ASPIRIN 81 MG ECTAB PO SCH ×2 (12:25→20:32)
[2021-11-27] MEDS: MULTIVITAMIN TAB PO SCH (12:25)
[2021-11-27] MEDS: DOCUSATE SODIUM 100 MG CAP PO SCH ×2 (12:25→20:33)
--- NOTE | 2021-11-27 14:08 | Progress Notes ---
DATE OF SERVICE: 11/27/2021. SUBJECTIVE: A 61-year-old gentleman postop from a left hip replacement. He is doing pretty well. H is pain was starting to increase and he took some oxycodone and is very comfortable. No chest pain o r shortness of breath. Not feeling dizzy or lightheaded. OBJECTIVE: VITAL SIGNS: Temperature 36.4. Vital signs are stable. PHYSICAL EXAMINATION: GENERAL: Shows a pleasant middle-aged male. He is sitting up in bed and looks pretty comfortable th is afternoon. LUNGS: Clear to auscultation. HEART: Has a regular rate and rhythm. ABDOMEN: Soft, nontender, nondistended. EXTREMITIES: Neurovascularly intact except as follows: Examination of the left lower extremity reve als the leg to be well aligned. Dressing is clean, dry and intact. His thigh is soft and supple. H e can slightly dorsiflex and plantarflex his foot. It is still on the weak side. He does have some baseline weakness, particularly with dorsiflexion and eversion due to his Arzhspl-Lqmco-Gmirs. He fe els like he is pretty much back to baseline. He has got brisk refill. X-RAYS: X-rays of the left hip from recovery room are reviewed. It shows left uncemented total hip arthroplasty. Components looked to be in excellent position. No signs of problems. ASSESSMENT: A 61-year-old gentleman with underlying Mpqavml-Ictgo-Efmmg disease, now postoperative f rom a left uncemented total hip replacement. He is doing well. Pain is controlled. His hip is loca dino. Neurovascularly, he appears to be close to baseline. He does have weakness in his foot from hi s Fncnhjk-Pnsom-Qjses disease. PLAN: 1. DVT prophylaxis includes thigh-high TEDs, SCDs, and aspirin twice a day. 2. PT/OT. He can weight bear as tolerated on the left leg, needs to obey hip precautions. 3. Pain control, doing okay with current pain regimen. 4. Disposition: Plan to discharge to home with some home health tomorrow after therapy, if he does okay. Job ID: [id number]
[2021-11-27] MEDS: ceFAZolin 2000MG 2,000 MG/15 ML SYR IV SCH ×2 (14:17→22:55)
[2021-11-27] MEDS: Scopolamine CHECK PATCH PLACEMENT SCH ×2 (14:18→23:39)
[2021-11-27] MEDS: SODIUM CHLORIDE 0.9% 1000ML 1,000 ML IV SCH ×2 (14:35→20:50)
[2021-11-27] MEDS ORDERED: TRANEXAMIC ACID / 0.7% NACL 1,000 MG/100 ML BAG IV SCH (15:00)
[2021-11-27] MEDS: ASCORBIC ACID 500 MG TAB PO SCH (17:11)
[2021-11-27] MEDS ORDERED: SENNA 8.6 MG TAB PO SCH (21:00)
[2021-11-28] MEDS: KETOROLAC 30 MG/ML VIAL IV SCH (05:42)
[2021-11-28] MEDS: oxyCODONE HCL IR 5 MG TAB (IMMEDIATE RELEASE) PO PRN ×2 (05:44→11:40)
[2021-11-28] MEDS: ACETAMINOPHEN 500 MG TAB PO SCH (05:54)
[2021-11-28 06:52] LABS: Eosinophils # (auto) 0.05 K/uL (0-0.5); Eosinophils % (auto) 0.7 %; Hematocrit (blood only) 45.7 % (42-52); Hemoglobin 15.5 g/dL (14.0-18.0); Immature Granulocytes # (auto) 0.01 K/uL (0.00-0.02); Immature Granulocytes % (auto) 0.1 %; Lymphocytes # (auto) 0.64 K/uL (1.2-3.4); Lymphocytes % (auto) 9.4 %; Mean Corpuscular Hemoglobin 31.4 pg (25-34); Mean Corpuscular Hgb Conc 33.9 g/dL (32-36); Mean Corpuscular Volume 92.5 fL (80-100); Mean Platelet Volume 9.7 fL (7.4-10.4); Monocytes # (auto) 0.74 K/uL (0.11-0.59); Monocytes % (auto) 10.9 %; Neutrophils # (auto) 5.34 K/uL (1.4-6.5); Neutrophils % (auto) 78.9 %; Platelet Count 182 K/uL (130-400); RDW Coefficient of Variation 13.5 % (11.5-14.5); RDW Standard Deviation 45.7 fL (36.4-46.3); Red Blood Count 4.94 M/uL (4.7-6.1); White Blood Count 6.78 K/uL (4.8-10.8)
[2021-11-28 07:16] LABS: BUN Creatinine Ratio 21.3 (10-20); Calcium 8.6 mg/dl (8.5-10.1); Creatinine Clr Calc Pharmacy 126.3 ml/min; Est GFR (African American) 113.2 ml/min; Est GFR (Non-African American) 97.6 ml/min; Potassium 4.2 mmol/L (3.5-5.1)
[2021-11-28 07:39] VITALS: PULSE 76; TEMP 98.6; O2SAT 93
[2021-11-28] MEDS ORDERED: dexAMETHasone 10 MG in SYRINGE 0 ML IV SCH (08:00)
[2021-11-28] MEDS: ASPIRIN 81 MG ECTAB PO SCH (08:35)
[2021-11-28] MEDS: ASCORBIC ACID 500 MG TAB PO SCH (08:35)
[2021-11-28] MEDS: MULTIVITAMIN TAB PO SCH (08:35)
[2021-11-28] MEDS: DOCUSATE SODIUM 100 MG CAP PO SCH (08:35)
[2021-11-28] MEDS: DOCUSATE SODIUM/SENNA 50/8.6MG TAB PO SCH (08:35)
[2021-11-28] MEDS: Scopolamine CHECK PATCH PLACEMENT SCH (08:36)
[2021-11-28] MEDS: TAMSULOSIN HCL 0.4 MG CAP PO SCH (08:36)
[2021-11-28 10:49] VITALS: BP 106/69
--- NOTE | 2021-11-28 11:08 | Progress Notes ---
DATE OF SERVICE: 11/28/2021. SUBJECTIVE: A 61-year-old gentleman postoperative day 1 from a left total hip replacement. He is do ing quite well. He had a pretty good night. Some moderate pain, but taking care with pain medicine. No chest pain or shortness of breath. Not feeling dizzy or lightheaded. He is hoping to go home. OBJECTIVE: VITAL SIGNS: Temperature 37.0. Vital signs are stable. GENERAL: Shows a pleasant middle-aged male. He is sitting up in his bedside, looks pretty comfortab le. LUNGS: Clear to auscultation. HEART: Has a regular rate and rhythm. ABDOMEN: Soft, nontender, nondistended. EXTREMITIES: Grossly neurovascularly intact except as follows. Examination of the left hip and leg reveals the dressing to be clean, dry and intact. His thigh is s oft and supple. Fairly minimal swelling. No active drainage. He can dorsiflex and plantarflex his foot appropriately. Still a little bit weak on this side, but looks to be back to baseline. ASSESSMENT: A 61-year-old gentleman with underlying Gfqvmow-Jtxzo-Oeppz disease, postoperative day 1 from left hip replacement. He is doing pretty well. Pain seems to be controlled. Neurologically h e seems to be back to baseline. PLAN: 1. DVT prophylaxis includes thigh-high TEDs, SCDs, and aspirin twice a day. 2. PT, OT, weightbear as tolerated. Left total hip protocol. 3. Pain control, doing okay with current pain regimen. 4. Disposition: Plan to discharge to home with some home health later today if he does okay in ther apy. Job ID: [id number]
== END 2021-11-28 11:50 | disposition home health service (06) ==
LOC: ASU 05:08 → 3E 05:08

== ENCOUNTER 2022-01-21 10:35 | Inpatient (IN) ==
--- NOTE | 2022-01-18 12:32 | Anesthesiology Consultation ---
Date of Service January 18, 2022 Assessment & Plan (1) Encounter for pre-operative examination: - COVID screening: Per assessment on 01/18: No known COVID-19 positive contacts or current COVID-19 related symptoms. Travel screen negative. Patient vaccinated. Preop Covid test done 01/18 ([place]) is pending. Pt requiring admission post-operatively. Plan for recheck with COVID Hand AM DOS due to possibility that patient may have a roommate. OR aware. Hand order placed. - S/P Left EDIN (11/27/21): SAB at L3/4 (x1 attempt) at [facility]. No issues noted per post-op anesthesia progress note. - Patient had preop labs done 01/18 ([place])- results are still pending (CBC, CMP). Labs done 11/2021 were unremarkable. Will need to review results AM DOS. Patient acceptable risk for surgery pending review of preop labs AM DOS. Chart Review Chart Review: Patient NOT seen in Pre Admission Testing History Surgery Operation Date: 01/21/22 12:30 Proposed Procedures p Left Hip Incision and Drainage with Poly Exchange - Marcelo Cote MD Height/Weight Height: 5 ft 8 in Weight: 111.584 kg Allergies Allergy/AdvReac Type Severity Reaction Status Date / Time No Known Allergies Allergy Unknown Verified 11/27/21 05:35 Medications Home Medications Medication Instructions Recorded Confirmed Last Taken famotidine 20 mg tablet (Pepcid) 20 mg PO UD PRN 09/23/19 01/18/22 11/26/21 08:00 amoxicillin 500 mg tablet 2,000 mg PO ONCE #4 tab 11/12/21 01/18/22 Unknown ondansetron HCl 4 mg tablet 4 mg PO Q6H PRN #25 tab 11/25/21 01/18/22 Unknown acetaminophen 500 mg tablet See Rx Instructions .ROUTE 12/20/21 01/18/22 Unknown .COMPLEX #90 cap cephalexin 500 mg capsule 500 mg PO Q6 #40 cap 01/01/22 01/18/22 Unknown sulfamethoxazole 800 1 tab PO BID #60 tab 01/04/22 01/18/22 Unknown mg-trimethoprim 160 mg tablet (Bactrim DS) Past Medical History Medical History Acid reflux 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[facility]) annually-longstanding bilateral mild foot drops worse on the left and numbness, ambulates with cane (TKA and back surgery in past year) Degenerative disc disease DJD (degenerative joint disease) History of claustrophobia with MRIs Lumbar spinal stenosis Morbid obesity with BMI of 40.0-44.9, adult Osteoarthritis Prosthetic hip infection Sciatica Snores No sleep study Past Family History Family History Mother Diabetes Daughter Family history of reaction to anesthesia slow to wake Past Surgical History Surgical History History of anesthesia reaction Low BP post-op back surgery (05/2021) History of colonoscopy History of lumbar surgery [place] [facility] [place], successfully treated with additional IV fluids per pt History of tooth extraction History of total left hip arthroplasty (~11/27/21) @ [facility] Dr. Cote History of total left knee replacement 05/23/2020: SAB at L3-L4 1 attempt + PNB. No issues postop per anesthesia note. History of total right hip replacement (~10/30/07) Left EDIN (11/27/21): SAB at L3/4 (x1 attempt) at [facility] Status post epidural steroid injection multiple--last 11/16/20 Social History Smoking Status: Never smoker tobacco type: cigarettes Smoking cigarettes per day: 4 CIGS PER DAY Hx Alcohol Use: Yes Alcohol type: hard liquor alcohol intake frequency: a few times a week Hx Substance Use: No substance use type: does not use Lab Results Anesthesia Preop Results Results Anesthesia Widget: WBC 6.78 K/uL (4.8-10.8) 11/28/21 Hgb 15.5 g/dL (14.0-18.0) 11/28/21 Hct 45.7 % (42-52) 11/28/21 Plt 182 K/uL (130-400) 11/28/21 Na 135 mmol/L (136-145) L 11/28/21 K 4.2 mmol/L (3.5-5.1) 11/28/21 Cl 101 mmol/L (98-107) 11/28/21 CO2 27 mmol/L (21-32) 11/28/21 BUN 16 mg/dl (6-23) 11/28/21 Creat 0.75 mg/dl (0.6-1.4) 11/28/21 Glucose Level 110 mg/dl (70-99(Fasting)) H 11/28/21 Testing Electrocardiogram Date: 10/19/21 NSR, rate 70 bpm Left axis deviation Incomplete RBBB Chest X-Ray Date: 10/19/21 No acute chest disease
[~2022-01-21 10:35] MED LIST changes: -BUPIVACAINE 0.5 % 5 MG/1 ML PF 10ML VIAL ONE; -BUPIVACAINE/EPINEPHRINE 0.25% 1:200,000 30 ML VIAL ONE; +DAKIN'S SOLN 0.5% FULL STRENGTH 473ML BTL EXT ONE; -DEXAMETHASONE SOD INJ 4 MG/ML VIAL ONE; +Scopolamine 1 MG TDSY TD SCH; -TRANEXAMIC ACID / 0.7% NACL 1,000 MG/100 ML BAG IV SCH; +TRANEXAMIC ACID 1,000 MG **IV Pre-op IV SCH; -ceFAZolin 2000MG 2,000 MG/15 ML SYR IV SCH
[2022-01-21] MEDS ORDERED: MIDAZOLAM HCL 1 MG/ML 2ML VIAL ONE (12:27)
[2022-01-21] MEDS ORDERED: fentaNYL citrate 100 MCG/2 ML VIAL ONE (12:30)
[2022-01-21] MEDS ORDERED: LIDOCAINE 2% 2 ML VIAL/AMP(20MG/ML) INFIL ONE (12:31)
[2022-01-21] MEDS ORDERED: ROCURONIUM BROMIDE 10 MG/ML 5 ML VIAL IV ONE (12:34)
[2022-01-21] MEDS ORDERED: ePHEDrine sulfate 50 MG/ML AMP IV PRN (12:47)
[2022-01-21] MEDS ORDERED: ATROPINE SULFATE 0.1 MG/ML 10ML SYR IV PRN (12:47)
[2022-01-21] MEDS ORDERED: ONDANSETRON INJ 2 MG/ML 2 ML VIAL IV PRN ×2 (12:47→17:55)
[2022-01-21] MEDS ORDERED: HYDROmorphone INJ 2 MG/ML SYR/VIAL IV PRN (12:47)
[2022-01-21] MEDS ORDERED: EPINEPHrine INJ 1 MG/ML AMP ONE (12:58)
[2022-01-21] MEDS ORDERED: BUPIVACAINE 0.5 % 5 MG/1 ML MPF 30ML VIAL ONE (12:58)
--- NOTE | 2022-01-21 13:21 | History & Physical Bridge Note ---
Date of Service January 21, 2022 History & Physical Bridge Note I have examined the patient, reviewed the History & Physical and in the interval since the performance of the History & Physical I have noted the following changes of clinical significance: no changes noted
[2022-01-21] MEDS ORDERED: VANCOMYCIN HCL 1000MG/20ML VIAL ONE ×2 (13:28→13:57)
[2022-01-21] MEDS ORDERED: DEXAMETHASONE SOD INJ 4 MG/ML VIAL ONE (14:12)
[2022-01-21] MEDS ORDERED: HYDROmorphone INJ 2 MG/ML SYR/VIAL ONE (14:23)
[2022-01-21] MEDS ORDERED: ONDANSETRON INJ 2 MG/ML 2 ML VIAL ONE (14:23)
[2022-01-21] MEDS ORDERED: GLYCOPYRROLATE 0.2 MG/ML VIAL ONE (14:25)
[2022-01-21] MEDS ORDERED: NEOSTIGMINE METHYLSULFATE 1 MG/ML 10ML VIAL ONE (14:25)
--- NOTE | 2022-01-21 16:25 | Post Operative Brief Note ---
PG Immediate Post Op with CF Date of Surgery January 21, 2022 Pre & Post Diagnosis Operation Date: 01/21/22 12:30 Pre-Op Diagnosis: Infected Total Hip Replacement Post-Op Diagnosis: Infected Total Hip Replacement I identified the patient and participated in the time-out.: Yes Procedure Operation Date: 01/21/22 12:30 Actual Procedures p Left Hip Incision and Drainage with femoral head and Polyethelene Exchange(Left) - Marcelo Cote MD Surgeon Marcelo Cote MD Lead Cashier Haresh Keys PA-C Estimated Blood Loss 300 Findings Consistent with Post-Op Diagnosis Fluids 1500 cc Specimens Specimen Description: Culture 1: Left Superficial Hip Wound 2: Left Deep Hip Wound Complications none Disposition Accompanied Patient To Recovery: Yes
[2022-01-21] MEDS: fentaNYL citrate 100 MCG/2 ML VIAL IV PRN ×2 (16:30→16:40)
--- NOTE | 2022-01-21 17:02 | XRay Report ---
XR hip 1V LT w pelvis CLINICAL HISTORY: IN PACU - A/P PELVIS and LATERAL HIP TECHNIQUE: 2 views of the left hip and single frontal view of the pelvis were obtained. Comparison: Comparison is made to left hip radiographs 11/27/2021 FINDINGS: There is no evidence of an acute fracture. Bilateral total hip arthroplasties are seen. No soft tissu e abnormality is seen. IMPRESSION: No evidence of acute osseous injury. ACT 112: Negative or not required by law. Electronically signed by: Vikas Keita M.D. 01/21/2022 4:59 PM
--- NOTE | 2022-01-21 17:22 | Anesthesiology Progress Note ---
Date of Service January 21, 2022 Anesthesia Post Procedure Vital Signs Vital Signs: Temp Pulse Pulse Resp BP Pulse Ox 01/21/22 17:10 36.3 C L 69 14 145/87 H 99 01/21/22 17:01 77 14 125/73 99 01/21/22 16:50 78 15 159/83 H 98 01/21/22 16:40 74 16 125/84 96 01/21/22 16:30 76 23 118/86 98 01/21/22 16:21 36.7 C 84 15 144/86 H 96 01/21/22 11:23 37.0 C 83 20 115/86 96 Pain Intensity Left Lateral Hip: Pain Intensity: 3 Transfer of Care Handoff Completed per policy Notes Mental Status: alert / awake / arousable and participated in evaluation Patient Amnestic to Procedure: Yes Nausea / Vomiting: adequately controlled Pain: adequately controlled Airway Patency, RR, SpO2: stable & adequate BP & HR: stable & adequate Hydration State: stable & adequate Anesthetic Complications: no major complications apparent and Pt Satisfied with anesthetic care
--- NOTE | 2022-01-21 17:36 | Anesthesiology Progress Note ---
Date of Service January 21, 2022 Anesthesia Post Procedure Vital Signs Vital Signs: Temp Pulse Pulse Resp BP Pulse Ox 01/21/22 17:30 36.3 C L 77 14 121/90 98 01/21/22 17:20 36.3 C L 65 15 142/87 H 98 01/21/22 17:10 36.3 C L 69 14 145/87 H 99 01/21/22 17:01 77 14 125/73 99 01/21/22 16:50 78 15 159/83 H 98 01/21/22 16:40 74 16 125/84 96 01/21/22 16:30 76 23 118/86 98 01/21/22 16:21 36.7 C 84 15 144/86 H 96 01/21/22 11:23 37.0 C 83 20 115/86 96 Pain Intensity Left Lateral Hip: Pain Intensity: 3 Transfer of Care Handoff Completed per policy Notes Mental Status: alert / awake / arousable Patient Amnestic to Procedure: Yes Nausea / Vomiting: adequately controlled Pain: adequately controlled Airway Patency, RR, SpO2: stable & adequate BP & HR: stable & adequate Hydration State: stable & adequate Anesthetic Complications: no major complications apparent and Pt Satisfied with anesthetic care
[2022-01-21] MEDS ORDERED: FAMOTIDINE 20 MG TAB PO PRN (17:55)
[2022-01-21] MEDS ORDERED: NALOXONE HCL 0.4 MG/1 ML VIAL/CARP IV PRN (17:55)
[2022-01-21] MEDS ORDERED: MAGNESIUM HYDROXIDE SUSP 30 ML UDC PO PRN (17:55)
[2022-01-21] MEDS ORDERED: VANCOMYCIN CONSULT ACTIVE PRN (17:55)
[2022-01-21] MEDS ORDERED: diphenhydrAMINE Capsule 25 MG CAP PO PRN (17:55)
[2022-01-21] MEDS ORDERED: METOCLOPRAMIDE HCL INJ 5 MG/ML 2 ML VIAL IV PRN (17:55)
[2022-01-21] MEDS ORDERED: traMADol HCL 50 MG TABLET PO PRN (17:55)
[2022-01-21] MEDS ORDERED: ALUMINUM/MAGNESIUM SUSP 30 ML UDC PO PRN (17:55)
[2022-01-21] MEDS ORDERED: TAMSULOSIN HCL 0.4 MG CAP PO PRN (17:55)
[2022-01-21] MEDS ORDERED: HYDROmorphone INJ 0.5 MG/0.5 ML SYR IV PRN (17:55)
[2022-01-21] MEDS ORDERED: bisacodyL 10 MG SUPP PR PRN (17:55)
[2022-01-21] MEDS: Scopolamine CHECK PATCH PLACEMENT SCH ×2 (18:03→23:20)
--- NOTE | 2022-01-21 18:23 | Operative Report ---
PG Post Operative Report Pre & Post Diagnosis Operation Date: 01/21/22 12:30 Pre-Op Diagnosis: Infected left total Hip Replacement Post-Op Diagnosis: Infected left total Hip Replacement I identified the patient and participated in the time-out.: Yes Procedure Operation Date: 01/21/22 12:30 Actual Procedures p Left Hip Incision and Drainage with Polyethelene Exchange(Left) - Marcelo Cote MD Surgeon Marcelo Cote MD Switch House Operator Haresh Keys PA-C Estimated Blood Loss 300 Findings Consistent with Post-Op Diagnosis Operative findings revealed a sinus tract from deep in the hip joint to the surf zhang of the skin with some granulation tissue. There is not any significant pus or purulent material. There was clearly some fibrinous material throughout the wound. His tissue layers were fairly adherent. All components were well fixed. No signs of any loosening. No bone destruction. Fluids 1500 cc Specimens Left hip joint fluid sent for culture x2 1 more superficial and 1 deep Anesthesia Type General Disposition Accompanied Patient To Recovery: Yes Indications Patient is a 61-year-old gentleman with underlying Japtikm-Smbsd-Uviur disease who is now little over 6 weeks out from a left, uncomplicated total hip arthroplasty. He is done quite well postoperatively pain brar without hardly any pain at all. And his 2-week visit he had a gush of fluid which he came out of the wound. We thought this was just a seroma as it was a benign appearing serosanguineous fluid. The drainage really stop and slow down fairly quickly but then has persisted shortly are a week or 2 later and is persisted since then. He was treated with some antibiotics. He clearly had some greenish granulation tissue and what appeared to be a sinus tract. Despite having very minimal if any pain I felt it was he had to have some degree of infection. Initially declined irrigation debridement but with now convinced him to proceed as we be more successful in eradicating the disease. Description of Procedure The patient was taken to the operating, identified, placed on the operating table supine position protectors were properly padded. IV antibiotics were held until after the cultures were obtained. A general anesthetic was implemented. The patient was then placed in the right lateral decubitus position. Axillary roll was placed. A Stulberg hip positioner was used for positioning. The left hip and leg were then prepped and draped in usual sterile fashion. A posterior lateral approach to the left hip was then performed through the previous incision. I did excise the sinus tract area and discarded all this tissue. Sharp dissection was carried through subcutaneous this down to the IT band. The tissue layers were not very definable. The IT band was incised. There was a hole in the IT band where this fluid emanated from. I did take a culture of this been right below the IT band area and sent this off for stat g johny stain aerobic anaerobic culture. We then proceeded. I had a bluntly dissect the IT band off the vastus lateralis as it was adherent. We had to mobilize these tissues. Once I was deprived obtained a deep culture of the fluid and sent this off for stat gram stain and aerobic anaerobic culture. I then debrided the back of the wound of all fibrinous debris. The hip was internally rotated and dislocated. It was quite well fixed. I then remove the femoral head. I then attached the slaphammer to the femoral component and attempted to remove this but there was no signs of any bulging at all. Therefore we elect to leave the femoral component. The femur was then retracted anteriorly. I excised some fibrinous tissue around the acetabular cup. I exposed this. We then remove the acetabular cup. We placed several 3.2 mm drill bit holes and then used a as 4.5 cortical screw. It took several attempts but were able to move the liner without difficulty. I then assessed the acetabulum and it was extremely well fixed. There is no signs of loosening. I did remove the apex hole division order technician. I elected to leave the screws in place as this was only replaced about 6 weeks ago. I then irrigated the wound extensively with 3 L of pulsatile lavage solution. I then irrigated the wound with 500 cc of hydrogen peroxide. I then used a toothbrush to scrub the components the Asti, the acetabular cup in the femoral neck and trunnion. I then irrigated this out with 3 L of pulsatile lavage solution. I then irrigated again with full-strength Dakin solution. We left to sit in the wound for 3 minutes. I then used a toothbrush to scrub the implants again. I then irrigated the wound again with pulsatile lavage solution. I then irrigated the wound with dilute sterile Betadine solution. We let the sit in the wound for 3 minutes. I then irrigated this out. I also used a toothbrush to scrub the implants again. I then irrigated this. Once this was complete I then trialed the hip. The used the same trial components and it was extremely stable. Leg lengths seemed appropriate. I then placed a permanent 56 mm outer diam and 36 mm diameter highly cross-linked polyethylene liner with a maza placed inferior pole and posterior. I elected used a maza just because he had no real posterior capsule remaining. Of note that we did not do any posterior capsular repair. The head was then placed on the trunnion. Hip was located once again found to be stable. Attention drawn toward closing. The wounds irrigated scope soft pulsatile lavage solution. I then placed about gram and a half of vancomycin deep in the wound. We closed the IT band gluteal fascia with #1 PDS suture in a running fashion. I then placed a 500 mg of vancomycin in the subcutaneous tissues. The subcutaneous tissues were then closed in 2 layers with for several #1 Vicryl sutures deep and then 2-0 Vicryl in the subcutaneous tissues. The skin was then closed with 2-0 nylon suture in a simple fashion. The leg was then cleaned and dried and a sterile Prevena VAC dressing was applied. The patient was then taken off the operating room table. He was brought out of general anesthesia and transferred to the recovery room in stable condition. Patient tolerated the procedure well and there were no complications. Of note, we obtain 2 cultures. I was planning on culturing the IM canal if remove the implants but this was not necessary. Haresh Keys, my physician visitor information assistant, was present for the entire procedure. His assistance was essential and required for appropriate patient positioning, pre pping and draping, surgical exposure, performing the technical details of the operation, placement the implants, closure of the wound, and placement of the sterile bandage. I attest to the content of the Intraoperative Record and any orders documented therein. Any exceptions are noted below.
[2022-01-21] MEDS: SODIUM CHLORIDE 0.9% 1000ML 1,000 ML IV SCH (18:28)
[2022-01-21] MEDS: ASCORBIC ACID 500 MG TAB PO SCH (19:15)
[2022-01-21] MEDS: KETOROLAC 30 MG/ML VIAL IV SCH ×2 (19:15→23:17)
[2022-01-21] MEDS: DOCUSATE SODIUM 100 MG CAP PO SCH (20:55)
[2022-01-21] MEDS: ASPIRIN 81 MG ECTAB PO SCH (20:55)
[2022-01-21] MEDS: SENNA 8.6 MG TAB PO SCH (20:55)
[2022-01-21] MEDS: ACETAMINOPHEN 500 MG TAB PO SCH (22:02)
[2022-01-21] MEDS ORDERED: VANCOMYCIN HCL 2,250 MG in SODIUM CHLORIDE 0.9% 500 ML IV ONE (22:15)
[2022-01-21] MEDS ORDERED: TRANEXAMIC ACID / 0.7% NACL 1,000 MG/100 ML BAG IV SCH (22:30)
[2022-01-22] MEDS ORDERED: VANCOMYCIN HCL 1,750 MG in SODIUM CHLORIDE 0.9% 500 ML IV SCH (02:30)
[2022-01-22] MEDS: SODIUM CHLORIDE 0.9% 1000ML 1,000 ML IV SCH (04:32)
[2022-01-22 06:30] LABS: Hematocrit (blood only) 32.5 % (42-52); Hemoglobin 10.4 g/dL (14.0-18.0); Immature Granulocytes # (auto) 0.02 K/uL (0.00-0.02); Immature Granulocytes % (auto) 0.3 %; Lymphocytes # (auto) 0.74 K/uL (1.2-3.4); Lymphocytes % (auto) 9.6 %; Mean Corpuscular Hemoglobin 28.4 pg (25-34); Mean Corpuscular Volume 88.8 fL (80-100); Mean Platelet Volume 9.2 fL (7.4-10.4); Monocytes # (auto) 0.88 K/uL (0.11-0.59); Monocytes % (auto) 11.4 %; Neutrophils # (auto) 6.07 K/uL (1.4-6.5); Neutrophils % (auto) 78.7 %; Platelet Count 302 K/uL (130-400); RDW Coefficient of Variation 14.3 % (11.5-14.5); RDW Standard Deviation 46.3 fL (36.4-46.3); Red Blood Count 3.66 M/uL (4.7-6.1); White Blood Count 7.71 K/uL (4.8-10.8)
[2022-01-22] MEDS: ACETAMINOPHEN 500 MG TAB PO SCH ×3 (06:41→22:31)
[2022-01-22] MEDS: KETOROLAC 30 MG/ML VIAL IV SCH ×4 (06:42→23:15)
[2022-01-22] MEDS ORDERED: VANCOMYCIN CONSULT ACTIVE PRN (07:02)
[2022-01-22 07:03] LABS: BUN Creatinine Ratio 22.6 (10-20); Calcium 7.8 mg/dl (8.5-10.1); Creatinine Clr Calc Pharmacy 147.1 ml/min; Est GFR (African American) 122.4 ml/min; Est GFR (Non-African American) 105.6 ml/min; Potassium 4.3 mmol/L (3.5-5.1)
[2022-01-22] MEDS: Scopolamine CHECK PATCH PLACEMENT SCH ×3 (08:25→23:15)
[2022-01-22] MEDS: ASCORBIC ACID 500 MG TAB PO SCH ×2 (08:25→17:33)
[2022-01-22] MEDS: DOCUSATE SODIUM 100 MG CAP PO SCH ×2 (08:26→20:25)
[2022-01-22] MEDS: ASPIRIN 81 MG ECTAB PO SCH ×2 (08:26→20:26)
[2022-01-22] MEDS: MULTIVITAMIN TAB PO SCH (08:26)
[2022-01-22] MEDS: VANCOMYCIN HCL 1,500 MG in SODIUM CHLORIDE 0.9% 500 ML IV SCH ×2 (08:32→20:24)
--- NOTE | 2022-01-22 09:18 | Pharmacy Report ---
Pharmacy Vanc AUC Short Note - Date of Service January 22, 2022 - Assessment & Plan Assessment 61 year old M receiving empiric vancomycin for treatment of infected left total hip replacement. POD #1 s/p left hip I&D with polyethelene exchange. Pertinent microbiologic data includes: Left hip cultures (01/21) pending. Renal function appears to be at/near baseline. Day # 2 of antimicrobial therapy. Plan Vancomycin * AUC/MARIANNE is the preferred PK/PD target for vancomycin * AUC guided dosing is effective and associated with decreased risk of nephrotoxicity compared to traditional trough targets * Maintenance dose of 1500 mg IV q12h predicted to achieve target AUC/MARIANNE of 400-600 mg/L.hr and may be associated with a 14 % risk of nephrotoxicity * Will order follow-up vanco trough/random level once at/near steady-state Pharmacy will continue to follow and will adjust dose/frequency as necessary. Thank you.
[2022-01-22] MEDS ORDERED: VANCOMYCIN HCL 1,500 MG in SODIUM CHLORIDE 0.9% 500 ML IV SCH (11:00)
--- NOTE | 2022-01-22 13:57 | Progress Notes ---
DATE OF SERVICE: 01/22/2022 SUBJECTIVE: A 61-year-old gentleman, now postop day 1 from I and D and femoral head and polyethylene exchange for an infected hip replacement acutely after surgery. He is doing well. He is not having that much pain. He is just taking Tylenol. No fevers. No chest pain, no shortness of breath. Not feeling dizzy or lightheaded. Therapy went pretty well. OBJECTIVE: VITAL SIGNS: Temperature 37.0. Vital signs are stable. PHYSICAL EXAMINATION: GENERAL: Shows a pleasant middle-aged male. He is sitting up at his bedside chair, looks comfortabl e. LUNGS: Clear to auscultation. HEART: Regular rate and rhythm. ABDOMEN: Soft, nontender, nondistended. EXTREMITIES: Grossly neurovascularly intact except as follows: Examination of the left hip reveals the wound VAC/Prevena VAC to be in place. It appears to be draining a small amount of bloody materia l. Minimal swelling. Thigh is soft and supple. Leg lengths are equal. He does have a weak motor f unction due to his Jbhkdne-Slczi-Hnqkn disease. LABORATORIES: Hemoglobin is 10.4. Hematocrit is 32.5. Electrolytes are stable. Gram stain on both fluid shows rare WBCs, no organisms. Cultures are both no growth to date. ASSESSMENT: A 61-year-old gentleman postoperative day 1 from irrigation and debridement, polyethylen e exchange, femoral head exchange for an infected hip arthroplasty. This has occurred during the acu te postoperative period. He underwent this irrigation and debridement and the implants are well fixe d. He is doing ____ clinically. Really not having much pain. PLAN: 1. DVT prophylaxis includes thigh-high TEDs, SCDs and aspirin twice a day. 2. PT, OT, weightbear as tolerated. Left total hip protocol. 3. Pain control, doing okay with current pain medicines, just using Tylenol currently. 4. Antibiotics/infection. There is certainly a chance this may not grow anything. We got him on br oad spectrum vancomycin for now. We will consult [facility] to help us to manage t his. He is going to need 6 weeks of IV antibiotics and then probably 3 months of p.o. antibiotics. 5. Disposition: Plan to discharge him home once we get a PICC line in place and antibiotic situation gets sorted out. Job ID: [id number]
[2022-01-22] MEDS: SENNA 8.6 MG TAB PO SCH (20:27)
[2022-01-23] MEDS: ACETAMINOPHEN 500 MG TAB PO SCH ×3 (05:20→22:58)
[2022-01-23] MEDS: KETOROLAC 30 MG/ML VIAL IV SCH ×2 (05:21→11:42)
[2022-01-23 05:57] LABS: Creatinine Clr Calc Pharmacy 149.5 ml/min; Est GFR (African American) 123.2 ml/min; Est GFR (Non-African American) 106.3 ml/min
[2022-01-23] MEDS: ASPIRIN 81 MG ECTAB PO SCH ×2 (08:34→20:11)
[2022-01-23] MEDS: ASCORBIC ACID 500 MG TAB PO SCH ×2 (08:35→16:54)
[2022-01-23] MEDS: DOCUSATE SODIUM 100 MG CAP PO SCH ×2 (08:35→20:10)
[2022-01-23] MEDS: MULTIVITAMIN TAB PO SCH (08:36)
[2022-01-23] MEDS: Scopolamine CHECK PATCH PLACEMENT SCH ×3 (08:36→22:58)
[2022-01-23] MEDS: VANCOMYCIN HCL 1,500 MG in SODIUM CHLORIDE 0.9% 500 ML IV SCH ×2 (08:39→20:10)
--- NOTE | 2022-01-23 14:57 | Progress Notes ---
DATE OF SERVICE: 01/23/2022. SUBJECTIVE: A 61-year-old gentleman now postop day 2 from I and D, polyethylene exchange, femoral he ad exchange for infected total hip replacement. He is doing quite well. Pain is controlled. He is getting around quite well. He is really anxious and wanting to go home. OBJECTIVE: GENERAL: Physical examination shows a pleasant middle-aged male. He is sitting up in his bedside ch air, looks quite comfortable. EXTREMITIES: Examination of the left hip reveals a Prevena wound VAC to be in place. Leg alignment looks good. Minimal swelling. He can dorsiflex and plantarflex his foot at his baseline, which is w eak due to his Ajfzash-Zianb-Yiwie disease. LABORATORY DATA: Cultures continue to be no growth to date. ASSESSMENT: A 61-year-old gentleman postoperative day 2 from I and D and polyethylene exchange and f emoral head exchange for an infected total hip replacement. He is doing quite well clinically. He i s on IV vancomycin. We are just waiting to get a standard dose and the ID consult from [employer]. PLAN: 1. DVT prophylaxis include thigh-high TEDs, SCDs, and aspirin twice a day. 2. PT, OT, weightbear as tolerated. Left total hip protocol. 3. Pain control, doing okay with current pain regimen. 4. IV antibiotics x6 weeks. We are waiting for final dosing. 5. Disposition: Plan to discharge to home likely with some home health to assist in antibiotic maria de jesus gement along with wound VAC care. Job ID: [id number]
[2022-01-23] MEDS: SENNA 8.6 MG TAB PO SCH (20:11)
[2022-01-24] MEDS: ACETAMINOPHEN 500 MG TAB PO SCH ×3 (06:12→22:07)
--- NOTE | 2022-01-24 07:55 | Progress Notes ---
DATE OF SERVICE: 01/24/2022. SUBJECTIVE: A 61-year-old gentleman now postop day 3 from an I and D of an infected hip replacement. He is doing well. Pain is controlled. He is just waiting for antibiotic recommendations for disch arge. OBJECTIVE: VITAL SIGNS: Temperature 37.2. Vital signs are stable. GENERAL: Physical examination shows a pleasant middle-aged male. He ambulates quite well with a wal ker. EXTREMITIES: The ____ wound VAC is in place. Thigh is soft and supple. NEUROLOGIC: He is neurologically intact. LABORATORY: Culture results are no growth to date. ASSESSMENT: A 61-year-old gentleman postoperative day 3 from I and D of an infected hip wound, doing well clinically. We are just waiting for final ID recommendations. Cultures have been no growth. Will have to use empiric antibiotic management. PLAN: 1. DVT prophylaxis to include thigh-high TEDs, SCDs, and aspirin twice a day. 2. PT, OT, weightbear as tolerated. Left total hip protocol. 3. Pain control, doing well with current pain regimen, just using Tylenol. 4. Antibiotics. Will wait and try ID's recommendations. Currently, we are using IV vancomycin and will likely discharge on that if we can get a regular dose. May need to be adjusted as an outpatient . Job ID: [id number]
--- NOTE | 2022-01-24 08:35 | Hospitalist Consultation ---
Date of Consultation January 24, 2022 Assessment & Plan (1) Degenerative joint disease of left hip: (2) History of hip replacement: (3) Infection associated with internal hip prosthesis: - Pain management, bowel regimen and DVT ppx per the primary team - Has been started on IV antibiotics with vancomycin - WBC = 7.71 from 01/22, repeat now to trend, add on CMP - Has been afebrile throughout hospital stay - Wound culture from left hip I&D negative for growth at this time, preliminary - ID consulted on 01/22 with Alla - awaiting recs, will discuss with attending regarding antibiotic use at home x 6 weeks, please refer to addendum - Plan to downgrade abx therapy to be able to do IV infusions at home, 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 DVT PPx: - teds, scds, asa BID CODE: Full code Dispo: From home, discharge per the primary team Thank you for involving us in the care of Mr. Jesus. Please do not hesitate to call with questions or concerns. Medicine service will follow along. Supervising Physician Co-Signing Physician Notes Patient was seen and examined independently at bedside. Chart reviewed. Case discussed with Vaishnavi ROWE. In summary, this is a 61 year old male s/p left hip arthroplasty 11/27 admitted for concern infected left total hip replacement. He had postop drainage from the surgical site noted 2 weeks post surgery during ortho follow up, and has been on course of keflex since then but continued with persistent drainage, hence he was admitted on 01/21 for concern for left hip prosthesis infection and underwent Left Hip Incision and Drainage with Polyethelene Exchange by Dr Cote on 01/21. He has been on IV vancomycin since and ID has been consulted for further ABx recommendation. OR clx negative so far. No blood clx were sent. He has Rt PICC line placed yesterday. Plan is for about 6 weeks of IV ABx. He feels fine. Pain is minimal without need for any opiates. He has been ambulating. No fever, chills, chest pain, shortness of breath. He feels and looks fine. He feels ready to go home. States his can manage home antibiotics. On exam, AAOx3, lying in bed, comfortable, on room air, chest clear, heart sounds normal, no edema, Left hip incision clean dry intact with prevena. Continue vancomycin which will be dosed based on renal function and vanc trough; will need weekly labs while on vanco. Will need home care set up. Further management per ID and orthopedics. History of Present Illness Reason for Consultation: Antibiotic therapy Requesting Physician: Dr. Cote Attending Physician: Marcelo Cote MD History of Present Illness This is a 61-year-old male with PMHx HTN, Mgefazd-Ihjzv-Bmcjx disease, DJD, lumbar spinal stenosis, osteoarthritis, prosthetic hip infection, sciatica and GERD who presented to the hospital for scheduled operative by Dr. Cote on 01/21/2022. At the time the patient underwent left hip incision and drainage with a joint exchange which revealed a sinus tract from the deep internal hip joint to the surface of the skin. Wound VAC has been placed. He was initially started on IV vancomycin and ID consult was placed. Antibiotic therapy has been recommended for 6-week timeframe. Orthopedics has consulted medicine for assistance with antibiotic management. Pt is doing well, denies any acute complaints. He reports he has been walking with a walker to assist, also with the nurse when out in the hallway. At times he has numbness in his feet bilaterally due to Kcirpdi-Fomdd-Cwvkw syndrome, but other times it is normal. He has not had a bowel movement in 2 days and states this is his usual. He is on stool softeners here. Tylenol has been working for his pain, no other use of pain medication. He is eating and drinking without difficulty. Denies any hip pain, surrounding redness, fevers chills or sweats. Allergies Allergy/AdvReac Type Severity Reaction Status Date / Time No Known Allergies Allergy Unknown Verified 01/21/22 11:02 Home Medications Medication Instructions Recorded Confirmed Type famotidine 20 mg tablet (Pepcid) 20 mg PO UD PRN 09/23/19 01/21/22 History amoxicillin 500 mg tablet 2,000 mg PO ONCE #4 tab 11/12/21 01/21/22 Rx ondansetron HCl 4 mg tablet 4 mg PO Q6H PRN #25 tab 11/25/21 01/21/22 Rx acetaminophen 500 mg tablet See Rx Instructions .ROUTE 12/20/21 01/21/22 Rx .COMPLEX #90 cap cephalexin 500 mg capsule 500 mg PO Q6 #40 cap 01/01/22 01/21/22 Rx sulfamethoxazole 800 1 tab PO BID #60 tab 01/04/22 01/21/22 Rx mg-trimethoprim 160 mg tablet (Bactrim DS) Patient History Medical History Acid reflux Ghrxabw-Hxtbt-Anfhz disease follows Dr. Shaffer ([facility]) annually-longstanding bilateral mild foot drops worse on the left and numbness, ambulates with cane (TKA and back surgery in past year) Degenerative disc disease DJD (degenerative joint disease) History of claustrophobia with MRIs Lumbar spinal stenosis Morbid obesity with BMI of 40.0-44.9, adult Osteoarthritis Prosthetic hip infection Sciatica Snores No sleep study Surgical History History of anesthesia reaction Low BP post-op back surgery (05/2021) History of colonoscopy History of lumbar surgery 05/2021 [facility]: hypotension, successfully treated with additional IV fluids per pt History of tooth extraction History of total left hip arthroplasty (~11/27/21) @ [facility] Dr. Cote History of total left knee replacement 05/23/2020: SAB at L3-L4 1 attempt + PNB. No issues postop per anesthesia note. History of total right hip replacement (~10/30/07) Left EDIN (11/27/21): SAB at L3/4 (x1 attempt) at [facility] Status post epidural steroid injection multiple--last 11/16/20 Family History Mother Diabetes Daughter Family history of reaction to anesthesia slow to wake Social History Smoking Status: Former smoker Smoking End Date: quit 2 years ago; Second Hand Exposure: Yes (father smoked); Do You Dip or Chew Tobacco: No; Tobacco Cessation Education Requested by Patient: No Hx Alcohol Use: Yes Alcohol type: hard liquor Hx Substance Use: No Preferred Language: Tuvaluan Communication Ability: Effective 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 Required: No Beliefs That Will Affect Care: None marital status: Current Living Situation: Spouse current occupational status: employed 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 [employer] Other Information That Helps Us Care for You: No Feels Safe at Home: Yes Safety Concerns: Feels Safe At This Time Assistive Devices: Cane and Walker Review of Systems Review of Systems: Constitutional: No fever, sweats or chills Eyes: No diplopia, no worsening or blurred vision ENT: normal hearing, no trouble swallowing Respiratory: No cough, sputum, dyspnea at rest or on exertion Cardiovascular: No chest pain, tightness or palpitations Abdomen: No pain, nausea, vomiting, diarrhea or constipation Musculoskeletal: No joint pain, calf pain, swelling, + wound vac in place Neurologic: No weakness, numbness/tingling, + uses walker for balance problems associated with Charcot Nela Tooth Psychiatric: No anxiety or depression Skin: No rash or itch Physical Exam Physical Exam: General: awake, alert, no apparent distress, obese with BMI of 37.1 Head: Normocephalic, atraumatic ENT: PERRL, EOMI, no pharyngeal exudate, mucous membranes moist Chest: Clear to auscultation, on room air, no adventitious breath sounds Cardiac: Regular rate and rhythm, no murmur, no JVD, normal peripheral pulses, good capillary refill Abdominal: NABS x 4 quadrants, soft, nondistended, nontender to palpation, no rebound or guarding Extremities: Left hip with wound vac in place, no surrounding erythema or edema in lower extremity, other extremities normal inspection, no peripheral edema or erythema, calfs nontender to palpation Psych: Normal mood and affect Neuro: AAO x 3, no gross motor deficits, speech is clear, intermittent peripheral sensory deficits d/t Charcot Nela Tooth Results & Data Results & Data ([facility]) Vital Signs (Past 12 Hours) Vital Signs Temp Pulse Resp BP Pulse Ox 01/24/22 07:18 37.2 C 72 16 104/63 99 01/23/22 23:20 36.5 C 85 16 108/63 97
[2022-01-24] MEDS: MULTIVITAMIN TAB PO SCH (09:09)
[2022-01-24] MEDS: ASPIRIN 81 MG ECTAB PO SCH ×2 (09:09→20:16)
[2022-01-24] MEDS: ASCORBIC ACID 500 MG TAB PO SCH ×2 (09:10→17:23)
[2022-01-24] MEDS: DOCUSATE SODIUM 100 MG CAP PO SCH ×2 (09:10→20:16)
[2022-01-24 09:45] LABS: Hematocrit (blood only) 30.2 % (42-52); Hemoglobin 9.6 g/dL (14.0-18.0); Mean Corpuscular Hemoglobin 28.4 pg (25-34); Mean Corpuscular Hgb Conc 31.8 g/dL (32-36); Mean Corpuscular Volume 89.3 fL (80-100); Mean Platelet Volume 8.9 fL (7.4-10.4); Platelet Count 306 K/uL (130-400); RDW Coefficient of Variation 14.8 % (11.5-14.5); RDW Standard Deviation 48.3 fL (36.4-46.3); Red Blood Count 3.38 M/uL (4.7-6.1); White Blood Count 6.12 K/uL (4.8-10.8)
[2022-01-24] MEDS: VANCOMYCIN HCL 1,750 MG in SODIUM CHLORIDE 0.9% 500 ML IV SCH ×2 (10:02→20:15)
[2022-01-24 10:38] LABS: BUN Creatinine Ratio 17.5 (10-20); Calcium 7.9 mg/dl (8.5-10.1); Est GFR (African American) 126.7 ml/min; Est GFR (Non-African American) 109.3 ml/min; Potassium 3.8 mmol/L (3.5-5.1)
[2022-01-24 10:39] LABS: Albumin Globulin Ratio 0.9 (0.9-2); Bilirubin,Total 0.3 mg/dl (0.2-1.0); Globulin 3.2 gm/dl (2.5-4.0); Total Protein 6.2 gm/dl (6.0-8.3)
--- NOTE | 2022-01-24 11:22 | Pharmacy Report ---
Pharmacy Vanc AUC Short Note - Date of Service January 24, 2022 - Assessment & Plan Assessment 61 year old M WAS receiving Vancomycin 1500 mg IV q12h for treatment of L infected hip post op. Hip wound culture show no growth. Awaiting ID recs. Day #4 of antimicrobial therapy. Random vancomycin level obtained this AM. See below. Laboratory Tests 01/24/22 05:31 Random Vancomycin 14.1 Plan Vancomycin * AUC/MARIANNE is the preferred PK/PD target for vancomycin * AUC guided dosing is effective and associated with decreased risk of nephrotoxicity compared to traditional trough targets * Vancomycin dose of 1500 mg IV q12h resulted in random level of 14.1 mcg/ml this AM. Extrapolated trough = 13.2 mcg/ml. * Trough level of 13.2 mcg/mL is predicted to achieve target AUC/MARIANNE of 452 mg/L.hr * For bone/joint infection, would target a higher AUC above 500 mg/L.hr. * Dosing is therefore increased to Vancomycin 1750 mg IV q12h. Expect AUC/MARIANNE of 527 mg/L.hr with new dosing. This may be associated with a 11% risk of nephrotoxicity which is low. * Trough/ random level ordered for: 01/26/22 with AM labs. Pharmacy will continue to follow and will adjust dose/frequency as necessary. Thank you.
[2022-01-24] MEDS: SENNA 8.6 MG TAB PO SCH (20:16)
[2022-01-25] MEDS: ACETAMINOPHEN 500 MG TAB PO SCH ×2 (05:32→13:56)
[2022-01-25 06:39] LABS: Creatinine Clr Calc Pharmacy 140.3 ml/min; Est GFR (Non-African American) 103.5 ml/min
[2022-01-25] MEDS: MULTIVITAMIN TAB PO SCH (09:06)
[2022-01-25] MEDS: ASCORBIC ACID 500 MG TAB PO SCH (09:06)
[2022-01-25] MEDS: ASPIRIN 81 MG ECTAB PO SCH (09:06)
[2022-01-25] MEDS: DOCUSATE SODIUM 100 MG CAP PO SCH (09:07)
[2022-01-25] MEDS: VANCOMYCIN HCL 1,750 MG in SODIUM CHLORIDE 0.9% 500 ML IV SCH (09:10)
[2022-01-25] MEDS ORDERED: DAPTOmycin 500 MG in SYRINGE 0 ML IV ONE (14:30)
--- NOTE | 2022-01-25 15:53 | Progress Notes ---
DATE OF SERVICE: 01/25/2022 SUBJECTIVE: A 61-year-old gentleman now postop day 4 from an I and D and polyethylene femoral head e xchange for an acutely infected total hip arthroplasty. He is doing well. Not having any pain. Jus t waiting for final infectious disease recommendations and antibiotic management. OBJECTIVE: VITAL SIGNS: Temperature 36.9. Vital signs are stable. PHYSICAL EXAMINATION: GENERAL: Shows a pleasant middle-aged male. He is walking around his room quite well with the use o f a walker. EXTREMITIES: The Prevena VAC is in place. Thigh is soft and supple. Leg lengths are equal. Hip is located. He is neurologically intact. LABORATORIES: Culture results are no growth to date. ASSESSMENT: A 61-year-old gentleman now 4 days out from I and D and polyethylene and femoral head ex change for an infected hip replacement, doing well. His pain is controlled. He is neurologically st able. Final infectious disease recommendations are just to continue him on vancomycin or daptomycin for 6 weeks followed by oral antibiotics afterwards. PLAN: We are going to discharge him today with daptomycin once a day dosing. Continue DVT prophylax is including thigh-high TEDs and aspirin twice a day, Tylenol for pain. Follow up in my clinic in 2 weeks. Job ID: [id number]
[2022-01-26] MEDS ORDERED: DAPTOmycin 500 MG in SYRINGE 0 ML IV SCH (14:00)
--- NOTE | 2022-01-28 09:04 | Discharge Summary ---
Date of Service January 28, 2022 Discharge Data Consultations 01/22/22 09:01 Consult Infectious Diseases Routine 01/24/22 08:16 Consult Hospitalist Routine Procedures Performed Operation Date: 01/21/22 12:30 Actual Procedures p Left Hip Incision and Drainage with Polyethelene Exchange(Left) - Marcelo Cote MD Hospital Course (1) Infection associated with internal hip prosthesis: This patient is a 61 year old male admitted on 01/21/22 and underwent I & D with polyethylene liner and head exchange. He tolerated the procedure well and there were no complications. Transferred to the PACU post op and later to the orthopedic floor for further care. He was given vancomycin. He was also given ALEXIS stockings, SCDs, and aspirin for DVT prophylaxis. Hemoglobin, hematocrit, and vital signs were monitored during his hospital stay and remained stable. Did not require any blood transfusions. There were no complications during his hospital stay. [facility] Infectious disease service was consulted for further antibiotic recommendations. By post op day #4 the patient was tolerating a regular diet, pain was reasonably controlled with oral pain medicine, and he was participating in physical therapy. On post op day #4 the patient was seen by the [facility] infectious disease service and was discharged home and set up with home health care. He was given printed discharge instructions including continuing aspirin. The vancomycin was changed to daptomycin IV. Continue physical therapy, weight bearing as tolerated. Continue ALEXIS stockings. Follow up approximately 2 weeks post op or sooner if there are problems or concerns. Coding Level of Care Code None Diagnoses Infection associated with internal hip prosthesis T84.59XA; Z96.649
== END 2022-01-25 16:49 | disposition home health service (06) | DRG 468 ==
LOC: ASU 10:35 → 3E 10:35